=== PATIENT | male | born 1970 | race Hispanic/Latino ===

== ENCOUNTER 2020-04-24 10:59 | Inpatient (IN) | payer OTHER ==
[~2020-04-24] VITALS: Ht 165.1 cm; Wt 85.7 kg
[2020-04-24] VITALS (7 sets, daily range): BP systolic 133–140; BP diastolic 73–83
[2020-04-24] MEDS ORDERED: SODIUM CHLORIDE 0.9% 1000ML 1,000 ML IV STA (11:13)
[2020-04-24] MEDS ORDERED: LORAZEPAM INJ 2 MG/ML VIAL IV NR (11:15)
[2020-04-24] MEDS ORDERED: VANCOMYCIN 1GM/NS 250 ML 250 ML IV ONE (11:30)
[2020-04-24 11:40] LABS: BASOPHILS % 0.5 % (0.0-1.0); EOSINOPHILS # (AUTO) 0.2 (0.0-0.4); HEMATOCRIT 43.3 % (38.2-49.6); HEMOGLOBIN 14.5 g/dL (14.0-18.0); LYMPHOCYTES # (AUTO) 1.4 (1.0-3.2); LYMPHOCYTES % 17.9 % (18.0-39.1); MEAN CORPUSCULAR HEMOGLOBIN 29.7 pg (28-32); MEAN CORPUSCULAR HGB CONC 33.5 g/dL (31-35); MEAN CORPUSCULAR VOLUME 88.7 fL (81-99); MONOCYTES # (AUTO) 0.7 (0.2-0.8); MONOCYTES % 8.5 % (4.4-11.3); NEUTROPHILS # (AUTO) 5.4 (2.1-6.9); NEUTROPHILS % 70.7 % (38.7-80.0); PLATELET COUNT 225 x10e3/uL (140-360); RED BLOOD COUNT 4.88 x10e6/uL (4.3-5.7); RED CELL DISTRIBUTION WIDTH 12.7 % (11.7-14.4)
[2020-04-24] MEDS ORDERED: MORPHINE SULFATE 2 MG/ML SYR 1ML IV NR (11:45)
[2020-04-24] MEDS ORDERED: ONDANSETRON HCL INJ 2MG/ML 2ML 2 MG/ML VIAL IV NR (11:45)
[2020-04-24 11:52] LABS: INR 1.07; PROTHROMBIN TIME 14.4 seconds (11.9-14.5)
[2020-04-24 11:53] LABS: PARTIAL THROMBOPLASTIN TIME 20.2 seconds (23.8-35.5)
[2020-04-24 12:07] LABS: ALANINE AMINOTRANSFERASE 46 IU/L (0-55); ALBUMIN 4.4 g/dL (3.5-5.0); ALBUMIN/GLOBULIN RATIO 1.4 (0.8-2.0); ALKALINE PHOSPHATASE 71 IU/L (40-150); ANION GAP 28.6 mmol/L (8-16); BLOOD UREA NITROGEN 10 mg/dL (7-26); BUN/CREATININE RATIO 11 (6-25); CALCIUM 8.8 mg/dL (8.4-10.2); CARBON DIOXIDE 22 mmol/L (22-29); CHLORIDE 89 mmol/L (98-107); CREATININE, SERUM 0.92 mg/dL (0.72-1.25); EST GLOMERULAR FILTRATION RATE > 60 ML/MIN (60-); GLUCOSE 108 mg/dL (74-118); POTASSIUM 3.6 mmol/L (3.5-5.1); SODIUM 136 mmol/L (136-145)
[2020-04-24] MEDS ORDERED: SODIUM CHLORIDE 0.9% 50ML 50 ML ONE (12:18)
[2020-04-24] MEDS ORDERED: IOPAMIDOL 370 MG/ML 200 ML INFUS..BTL INJ ONE (12:19)
[2020-04-24] MEDS ORDERED: ONDANSETRON HCL INJ 2MG/ML 2ML 2 MG/ML VIAL IV PRN (13:15)
[2020-04-24] MEDS ORDERED: ACETAMINOPHEN 325 MG TAB PO PRN (13:15)
--- NOTE | 2020-04-24 13:16 | NUR ---
H&P cc: face rash HPI: 49yoM, PCP none, developed left cheek swelling and pain/redness that started yesterday. Started as itching; Similar event about 6 yrs ago. PMH HTN, Left facial cellulitis in 2013 PShx; cholecystectomy Allergies; see emr Fh/SH; marrie;d no cigs med.s see [facility] ROS; no f/c/s/n/V/D/[facility]/cp/sob/confusion/dizziness/vision changes/leg pain v/s; revd PE tired appearing anicteric; LEFT FACIAL AT [place] WITH ERYTHEMA/INDURATION/TENDERNESS/WARMTH; no skin breakdown/discharge [id number] mod bs soft nt nd no e/t skin dry n. affect labs/meds revd A/P: Cellulitis of face- IV abx; cultures Furuncle of face- Possible abscess; IV abx; f/u imaging; Obesity- screen for DM; check lipids BMI 31.5- as above Prop; scd DIpso: f/u labs;
--- NOTE | 2020-04-24 13:31 | Emergency Department Note ---
History of Present Illnes History of Present Illness Chief Complaint: Skin Rash or Abscess History of Present Illness This is a 49 year old male LAST NIGHT FELT ITCHING TO LEFT SIDE OF FACE. WOKE UP THIS MORNING WITH REDNESS, SWELLING, TENDER, INDURATED. 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 Any updates have been documented here. Past Medical History Recent Fever: No Clinical Suspicion of Infectio: No New/Unexplained Change in Ment: No Past Medical History: Hypertension, Anxiety, Hyperlipedemia Past Surgical History: Cholecysctectomy Social History Smoking Cessation: Never Smoker Counseling Performed: No Alcohol Use: None Any Illegal Drug Use: No TB Exposure/Symptoms: No Physically hurt or threatened: No Family History Family history of heart diseas: No Other Any Pre-Existing Lines (PICC,: No Review of Systems Review of Systems Constitutional: Reports no symptoms EENTM: Reports as per HPI Cardiovascular: Reports no symptoms Respiratory: Reports no symptoms Gastrointestinal: Reports no symptoms Genitourinary: Reports no symptoms Musculoskeletal: Reports no symptoms Integumentary: Reports no symptoms Neurological: Reports no symptoms Psychological: Reports no symptoms Endocrine: Reports no symptoms Hematological/Lymphatic: Reports no symptoms Physical Exam Related Data Allergies: Coded Allergies: No Known Allergies (Unverified , 04/24/20) Triage Vital Signs Vital Signs Date Time Temp Pulse Resp B/P (MAP) Pulse Ox O2 Delivery O2 Flow Rate FiO2 04/24/20 11:06 98.3 100 18 141/108 99 Room Air Vital signs reviewed: Yes Physical Exam CONSTITUTIONAL Constitutional: Present well-developed, Present well-nourished HENT HENT: Present normocephalic, Present atraumatic, Present other (LEFT FACIAL SWELLING/INDURATION, WITH TENDERNESS) HENT L/R: Present left ext ear normal, Present right ext ear normal EYES Eyes: Reports PERRL, Reports conjunctivae normal NECK Neck: Present ROM normal PULMONARY Pulmonary: Present effort normal, Present breath sounds normal CARDIOVASCULAR Cardiovascular: Present regular rhythm, Present heart sounds normal, Present capillary refill normal, Present normal rate GASTROINTESTINAL Abdominal: Present soft, Present nontender, Present bowel sounds normal GENITOURINARY Genitourinary: Present exam deferred SKIN Skin: Present warm, Present dry MUSCULOSKELETAL Musculoskeletal: Present ROM normal NEUROLOGICAL Neurological: Present alert, Present oriented x 3, Present no gross motor or sensory deficits PSYCHOLOGICAL Psychological: Present mood/affect normal, Present judgement normal Results Laboratory Result Diagram: 04/24/20 1124 04/24/20 1124 Laboratory Laboratory Tests Test 04/24/20 12:38 04/24/20 11:24 White Blood Count 7.64 x10e3/uL (4.8-10.8) Red Blood Count 4.88 x10e6/uL (4.3-5.7) Hemoglobin 14.5 g/dL (14.0-18.0) Hematocrit 43.3 % (38.2-49.6) Mean Corpuscular Volume 88.7 fL (81-99) Mean Corpuscular Hemoglobin 29.7 pg (28-32) Mean Corpuscular Hemoglobin Concent 33.5 g/dL (31-35) Red Cell Distribution Width 12.7 % (11.7-14.4) Platelet Count 225 x10e3/uL (140-360) Neutrophils (%) (Auto) 70.7 % (38.7-80.0) Lymphocytes (%) (Auto) 17.9 % (18.0-39.1) Monocytes (%) (Auto) 8.5 % (4.4-11.3) Eosinophils (%) (Auto) 2.0 % (0.0-6.0) Basophils (%) (Auto) 0.5 % (0.0-1.0) Neutrophils # (Auto) 5.4 (2.1-6.9) Lymphocytes # (Auto) 1.4 (1.0-3.2) Monocytes # (Auto) 0.7 (0.2-0.8) Eosinophils # (Auto) 0.2 (0.0-0.4) Basophils # (Auto) 0.0 (0.0-0.1) Absolute Immature Granulocyte (auto 0.03 x10e3/uL (0-0.1) Prothrombin Time 14.4 seconds (11.9-14.5) Prothromb Time International Ratio 1.07 Activated Partial Thromboplast Time 20.2 seconds (23.8-35.5) Sodium Level 136 mmol/L (136-145) Potassium Level 3.6 mmol/L (3.5-5.1) Chloride Level 89 mmol/L (98-107) Carbon Dioxide Level 22 mmol/L (22-29) Anion Gap 28.6 mmol/L (8-16) Blood Urea Nitrogen 10 mg/dL (7-26) Creatinine 0.92 mg/dL (0.72-1.25) Estimat Glomerular Filtration Rate > 60 ML/MIN (60-) BUN/Creatinine Ratio 11 (6-25) Glucose Level 108 mg/dL (74-118) Lactic Acid Level 1.6 mmol/L (0.5-2.0) Calcium Level 8.8 mg/dL (8.4-10.2) Total Bilirubin 0.5 mg/dL (0.2-1.2) Aspartate Amino Transf (AST/SGOT) 30 IU/L (5-34) Alanine Aminotransferase (ALT/SGPT) 46 IU/L (0-55) Alkaline Phosphatase 71 IU/L (40-150) Total Protein 7.5 g/dL (6.5-8.1) Albumin 4.4 g/dL (3.5-5.0) Globulin 3.1 g/dL (2.3-3.5) Albumin/Globulin Ratio 1.4 (0.8-2.0) Lab results reviewed: Yes Imaging Imaging results reviewed: Yes Assessment & Plan Medical Decision Making MDM FACIAL SWELLING - CBC, CHEM, CX'S, LACTIC, CT FACE - R/O CELLULITIS VS ABSCESS, IV ABX'S, ADMIT Reassessment Reassessment ADMIT TO DR MAZARIEGOS Assessment & Plan Final Impression: (1) Facial cellulitis Depart Disposition: ADMITTED Last Vital Signs Date Time Temp Pulse Resp B/P (MAP) Pulse Ox O2 Delivery O2 Flow Rate FiO2 04/24/20 11:06 98.3 100 18 141/108 99 Room Air Medications in the ED Sodium Chloride 1,000 ml @ 0 mls/hr Q0M STAT IV Last administered on 04/24/20at 11:48; Admin Dose 1,000 MLS/HR; Start 04/24/20 at 11:13; Stop 04/24/20 at 11:18; Status DC Lorazepam 1 mg ONCE IV Last administered on 04/24/20at 11:48; Admin Dose 1 MG; Start 04/24/20 at 11:15; Stop 04/24/20 at 12:00; Status DC Piperacillin Sod/ Tazobactam Sod 50 ml @ 50 mls/hr Q6H IV ; Start 04/24/20 at 12:00; Stop 05/01/20 at 11:59 Vancomycin HCl 250 ml @ 200 mls/hr NOW ONCE IV Last administered on 04/24/20at 11:48; Admin Dose 200 MLS/HR; Start 04/24/20 at 11:30; Stop 04/24/20 at 12:44; Status DC Morphine Sulfate 4 mg ONCE IV Last administered on 04/24/20at 11:48; Admin Dose 4 MG; Start 04/24/20 at 11:45; Stop 04/24/20 at 12:59; Status DC Ondansetron HCl 4 mg ONCE IV Last administered on 04/24/20at 11:48; Admin Dose 4 MG; Start 04/24/20 at 11:45; Stop 04/24/20 at 12:59; Status DC Sodium Chloride 50 ml @ ud STK-MED ONCE .ROUTE ; Start 04/24/20 at 12:18; Stop 04/24/20 at 12:11; Status DC Iopamidol 74,000 mg STK-MED ONCE INJ ; Start 04/24/20 at 12:19; Stop 04/24/20 at 12:12; Status DC Clindamycin Phosphate 50 ml @ 50 mls/hr Q8HR IV ; Start 04/24/20 at 14:00; Stop 05/01/20 at 13:59 Acetaminophen 650 mg Q6H PRN PO Mild Pain (1-3) or Fever>100.8; Start 04/24/20 at 13:15; Stop 05/24/20 at 13:14 Docusate Sodium 100 mg BID PRN PO constipation; Start 04/24/20 at 13:15; Stop 05/24/20 at 13:14 Ondansetron HCl 4 mg Q4H PRN IV NAUSEA AND VOMITING; Start 04/24/20 at 13:15; Stop 05/24/20 at 13:14 Zolpidem Tartrate 5 mg HS PRN PO INSOMNIA; Start 04/24/20 at 21:00; Stop 05/01/20 at 20:59 BA DURÁN MD Apr 24, 2020 13:31
--- OUTSIDE RECORDS SUMMARY | 2020-04-24 13:35 | XMS REPORT | Clinical Summary ---
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 Active lisinopril (PRINIVIL) 10 Take 1 tablet 90 tablet 0 mg tabletIndications: by mouth 7 Medication refill daily. Active albuterol (VENTOLIN Inhale 2 3 Month 0 HFA,PROVENTIL HFA,PROAIR Puffs by Supply 7 HFA) 90 mcg/actuation mouth 4 times inhalerIndications: daily as Medication refill needed for Wheezing. Active baclofen (LIORESAL) 10 mg Take 1 tablet 30 tablet 0 tabletIndications: Neck by mouth 3 7 pain times daily. Active PARoxetine (PAXIL) 30 mg Take 2 60 tablet 2 0 tabletIndications: MDD tablets by 7 (major depressive mouth every disorder), recurrent morning. episode, moderate Active clonazePAM (KLONOPIN) 1 Take 1 tablet 60 tablet 2 mg tabletIndications: MDD by mouth 2 7 (major depressive times daily disorder), recurrent as needed for episode, moderate, Panic Anxiety. disorder with agoraphobia Active QUEtiapine (SEROQUEL) 50 Take 1 tablet 30 tablet 0 mg tabletIndications: MDD by mouth at 7 (major depressive bedtime disorder), recurrent nightly. episode, moderate, Panic disorder with agoraphobia Active Problems Not on file Immunizations Name Administration Dates Next Due Influenza <Unspecified> 03/11/2016 Social History Date Tobacco Use Types Packs/Day Years Used Never Smoker Drinks/Week oz/Week Comments Alcohol Use 0 Standard drinks or equivalent 0.0 Not Asked Sex Assigned at Date Recorded Not on file Industry Job Start Date Occupation Not on file Not on file Not on file Travel End Travel History Travel Start No recent travel history available. Last Filed Vital Signs Not on file Plan of Treatment Health Maintenance Due Date Last Done Comments IMM Influenza Seasonal 02/25/2020 03/11/2016 Oct to July (>/= 19 yrs) Results Not on fileafter 04/24/2019 Insurance Type Payer Benefit Subscriber ID Effective Phone Address Plan / Dates Group [email or web address] xxxxxxxxx 2016-P [phone] [address] [address] [place] [address] [email or web address] xxxxxxxxx 2016-P [phone] [address] [address] [place] [address]
--- OUTSIDE RECORDS SUMMARY | 2020-04-24 13:36 | XMS REPORT | Continuity of Care Document ---
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 Encounter Type Admission Type [facility] Facility Care Department Encounter ID Source 2020-03-09 00:00:00 2020-03-09 00:00:00 Office Visit Tyrell Bauman [facility] Encounter/[id number] [facility] 2020-03-03 00:00:00 2020-03-03 00:00:00 Office Visit Tyrell Bauman [facility] Encounter/[id number] [facility] 2020-03-01 00:00:00 2020-03-01 00:00:00 Office Visit Lorie Cash I [facility] Encounter/[id number] [facility] 2020-03-01 00:00:00 2020-03-01 00:00:00 Office Visit Tyrell Bauman [facility] Encounter/[id number] [facility] 2020-02-10 00:00:00 2020-02-10 00:00:00 Office Visit Noah Cabrera [facility] Encounter/[id number] [facility] 2020-01-11 00:00:00 2020-01-11 00:00:00 Office Visit Tyrell Bauman [facility] Encounter/[id number] [facility] 2019-11-25 00:00:00 2019-11-25 00:00:00 Office Visit Noah Cabrera [facility] LC Encounter/[id number] [facility] 2019-11-10 00:00:00 2019-11-10 00:00:00 Office Visit Tyrell Bauman LC LC Encounter/[id number] [facility] 2019-10-21 00:00:00 2019-10-21 00:00:00 Office Visit Lizeth Hendrickson MedAdherJackie martin [facility] LC Encounter/[id number] [facility] 2019-10-15 00:00:00 2019-10-15 00:00:00 Office Visit Prakash Shelby [facility] LC Encounter/[id number] [facility] 2019-10-09 00:00:00 2019-10-09 00:00:00 Office Visit Igor Crowell MedAdherenceErin [facility] LC Encounter/[id number] [facility] 2019-10-09 00:00:00 2019-10-09 00:00:00 Office Visit Prakash Shelby [facility] LC Encounter/[id number] [facility] 2019-10-09 00:00:00 2019-10-09 00:00:00 Office Visit Igor Crowell Paulina [facility] LC Encounter/[id number] [facility] 2019-10-05 00:00:00 2019-10-05 00:00:00 Office Visit Prakash Shelby [facility] LC Encounter/[id number] [facility] 2019-10-05 00:00:00 2019-10-05 00:00:00 Office Visit Prakash Shelby [facility] LC Encounter/[id number] [facility] 2019-09-23 00:00:00 2019-09-23 00:00:00 Office Visit Igor Crowell MedAdherence,Parviz LC LC Encounter/[id number] [facility] 2019-09-18 00:00:2019-09-18 00:00:00 Office Visit HeronPrakash LC LC Encounter/[id number] [facility] 2019-09-18 00:00:00 2019-09-18 00:00:00 Office Visit HeronPrakash LC [facility] Encounter/[id number] [facility] 2019-09-18 00:00:00 2019-09-18 00:00:00 Office Visit Heron Prakash simon [facility] LCH Encounter/[id number] [facility] 2019-09-18 00:00:00 2019-09-18 00:00:00 Office Visit Heron Prakash simon [facility] LCH Encounter/[id number] [facility] 2019-09-18 00:00:00 2019-09-18 00:00:[address] [facility] LCH Encounter/[id number] [facility] 2019-09-18 00:00:00 2019-09-18 00:00:00 Office Visit Sissy Cohen Luis E LC LC Encounter/[id number] [facility] 2019-09-14 00:00:00 2019-09-14 00:00:00 Office Visit Tyrell Bauman LC [facility] Encounter/[id number] [facility] 2019-07-23 00:00:00 2019-07-23 00:00:00 Office Visit Rossy Hsu Marlin LC LC Encounter/[id number] Leg [facility] 2019-07-22 00:00:00 2019-07-22 00:00:00 Office Visit Rossy Hsu Jose E LC LC [id number] [facility]00 2019-07-21 00:00:00 Office Visit Tyrell Bauman LC [facility] Encounter/[id number] [facility] 2019-07-21 00:00:00 2019-07-21 00:00:00 Office Visit Rossy Hsu Jennifer LC [facility] Encounter/[id number] [facility] 2019-06-02 00:00:00 2019-06-02 00:00:00 Office Visit Yin Her Jacklyn LC L[facility] Encounter/[id number] [facility] 2019-05-25 00:00:00 2019-05-25 00:00:00 Office Visit Tyrell Bauman LC L[facility] Encounter/[id number] [facility] 2019-05-25 00:00:00 2019-05-25 00:00:00 Office Visit Rossy Hsu Nancy LC L[facility] Encounter/[id number] [facility] 2019-05-01 00:00:00 2019-05-01 00:00:00 Office Visit Rick Noah susy LC [facility] Encounter/[id number] [facility] 2019-03-19 00:00:00 2019-03-19 00:00:00 Office Visit Tyrell Bauman LC L[facility] Encounter/[id number] [facility] 2019-03-19 00:00:00 2019-03-19 00:00:00 Office Visit Rossy Hsu Nancy LC L[facility] Encounter/[id number] [facility] 2019-02-18 00:00:00 2019-02-18 00:00:00 Office Visit Tyrell Bauman LC L[facility] Encounter/[id number] [facility] 2019-02-18 00:00:00 2019-02-18 00:00:00 Office Visit Rossy Hsu Nancy LC L[facility] Encounter/[id number] [facility] 2019-01-07 00:00:00 2019-01-07 00:00:00 Office Visit Status, Fax LCH L[facility] Encounter/[id number] [facility] 2019-01-07 00:00:00 2019-01-07 00:00:00 Office Visit Status, Fax LCH L[facility] Encounter/[id number] [facility] 2019-01-07 00:00:00 2019-01-07 00:00:00 Office Visit Status, Fax LCH L[facility] Encounter/[id number] [facility] 2019-01-06 00:00:00 2019-01-06 00:00:00 Office Visit NiravLiban Tran LC L[facility] Encounter/[id number] [facility] 2019-01-06 00:00:00 2019-01-06 00:00:00 Office Visit Julián Manzo Dennys Vasquez, Adriana LC L[facility] Encounter/[id number] [facility] 2018-12-03 00:00:00 2018-12-03 00:00:00 Office Visit Liban Gastelum felicitas Tran LC L[facility] Encounter/[id number] [facility] 2018-12-02 00:00:00 2018-12-02 00:00:00 Office Visit Liban Gastelum LCH LCH Encounter/[id number] [facility] 2018-12-02 00:00:00 2018-12-02 00:00:00 Office Visit Liban Gastelum LC L[facility] Encounter/[id number] [facility] 2018-12-02 00:00:00 2018-12-02 00:00:00 Office Visit Liban Gastelum LC L[facility] Encounter/[id number] [facility] 2018-12-02 00:00:00 2018-12-02 00:00:00 Office Visit Liban Gastelum felicitas Tran LCH LCH Encounter/[id number] [facility] 2018-12-02 00:00:00 2018-12-02 00:00:00 Office Visit Julián Manzo Deborath LCH L[facility] Encounter/[id number] [facility] 2018-12-01 00:00:00 2018-12-01 00:00:00 Office Visit Tyrell Bauman LCH LCH Encounter/[id number] [facility] 2018-12-01 00:00:00 2018-12-01 00:00:00 Office Visit Tyrell Bauman LCH LCH Encounter/[id number] [facility] 2018-12-01 00:00:00 2018-12-01 00:00:00 Office Visit B Rossy aguirre Nancy LC LC [facility][id number] [facility] 2018-11-26 00:00:00 2018-11-26 00:00:00 Office Visit Tyrell Bauman LCH Encounter/[id number] [facility] 2018-11-06 00:00:00 2018-11-06 00:00:00 Office Visit Liban Gastelum LC LCH Encounter/[id number] [facility] 2018-09-30 00:00:00 2018-09-30 00:00:00 Office Visit Tyrell Bauman LC L[facility] Encounter/[id number] [facility] 2018-09-30 00:00:00 2018-09-30 00:00:00 Office Visit Rossy Hsu Nancy LC [facility] Encounter/[id number] [facility] 2018-07-29 00:00:00 2018-07-29 00:00:00 Office Visit Tyrell Bauman LC L[facility] Encounter/[id number] [facility] 2018-07-29 00:00:00 2018-07-29 00:00:00 Office Visit Rossy Hsu Nancy LC LC Encounter/[id number] [facility] 2018-06-16 19:00:00 2018-06-16 21:15:00 Departed Emergency Room 1 BA [facility] [id number] [facility] 2018-06-06 00:00:00 2018-06-06 00:00:00 Office Visit Liban Gastelum LC L[facility] Encounter/[id number] [facility] 2018-06-04 00:00:00 2018-06-04 00:00:00 Office Visit Tyrell Bauman LC L[facility] Encounter/[id number] [facility] 2018-06-04 00:00:00 2018-06-04 00:00:00 Office Visit Rossy Hsu Nancy LC L[facility] Encounter/[id number] [facility] 2018-05-22 00:00:00 2018-05-22 00:00:00 Office Visit Liban Gastelum LC L[facility] Encounter/[id number] [facility] 2018-05-22 00:00:00 2018-05-22 00:00:00 Office Visit Julián Manzo Deborath LC L[facility] Encounter/[id number] [facility] 2018-04-10 00:00:00 2018-04-10 00:00:00 Office Visit Amilcar Leone LC L[facility] Encounter/[id number] [facility] 2018-04-09 00:00:00 2018-04-09 00:00:00 Office Visit Liban Gastelum LC L[facility] Encounter/[id number] [facility] 2018-03-26 00:00:00 2018-03-26 00:00:00 Office Visit Tyrell Bauman LC LCH Encounter/[id number] [facility] 2018-03-26 00:00:00 2018-03-26 00:00:00 Office Visit Rossy Hsu Dalila LC LCH Encounter/[id number] [facility] 2018-03-21 00:00:00 2018-03-21 00:00:00 Office Visit Tyrell Bauman LCH LCH Encounter/[id number] [facility] 2018-03-10 00:00:00 2018-03-10 00:00:00 Office Visit Rossy Hsu Wendy LC LCH Encounter/[id number] [facility] 2018-01-07 00:00:00 2018-01-07 00:00:00 Office Visit Tyrell Bauman LC LCH Encounter/[id number] [facility] 2018-01-07 00:00:00 2018-01-07 00:00:00 Office Visit Rossy Hsu Grace LC LCH Encounter/[id number] [facility] 2017-11-07 00:00:00 2017-11-07 00:00:00 Office Visit Tyrell Bauman LCH LCH Encounter/[id number] [facility] 2017-11-07 00:00:00 2017-11-07 00:00:00 Office Visit Yisel sheldonchon Rossy JoseShani LCH LCH Encounter/[id number] [facility] 2017-10-30 00:00:00 2017-10-30 00:00:00 Office Visit Tyrell Bauman LCH LCH Encounter/[id number] [facility] 2017-10-30 00:00:00 2017-10-30 00:00:00 Office Visit Tyrell Bauman aeroshan LCH LCH Encounter/[id number] [facility] 2017-10-28 00:00:00 2017-10-28 00:00:00 Office Visit Tyrell Bauman LCH LCH Encounter/[id number] [facility] 2017-10-23 00:00:00 2017-10-23 00:00:00 Office Visit Tyrell Bauman LCH LCH Encounter/[id number] [facility] 2017-10-23 00:00:00 2017-10-23 00:00:00 Office Visit Tyrell Bauman LCH LCH Encounter/[id number] [facility] 2017-10-22 00:00:00 2017-10-22 00:00:00 Office Visit Tyrell Bauman LCH LCH Encounter/[id number] [facility] 2017-10-22 00:00:00 2017-10-22 00:00:00 Office Visit Tyrell Bauman LCH LCH Encounter/[id number] [facility] 2017-10-20 00:00:00 2017-10-20 00:00:00 Office Visit SandipchonTyrell LCH LCH Encounter/[id number] [facility] 2017-10-20 00:00:00 2017-10-20 00:00:00 Office Visit SandipchonTyrell LCH LCH Encounter/[id number] [facility] 2017-09-25 00:00:00 2017-09-25 00:00:00 Office Visit Tyrell Bauman LCH LCH Encounter/[id number] [facility] 2017-09-25 00:00:00 2017-09-25 00:00:00 Office Visit Tryell Bauman LCH LCH Encounter/[id number] [facility] 2017-09-23 00:00:00 2017-09-23 00:00:00 Office Visit MernaTyrell LCH LCH Encounter/[id number] [facility] 2017-09-23 00:00:00 2017-09-23 00:00:00 Office Visit MernaTyrell LCH LCH Encounter/[id number] [facility] 2017-09-10 00:00:00 2017-09-10 00:00:00 Office Visit Julián Manzo Crystal LCH LCH Encounter/[id number] [facility] 2017-08-27 00:00:00 2017-08-27 00:00:00 Office Visit MernaTyrell LCH LCH Encounter/[id number] [facility] 2017-08-26 00:00:00 2017-08-26 00:00:00 Office Visit MernaTyrell LCH LCH Encounter/[id number] [facility] 2017-08-24 00:00:00 2017-08-24 00:00:00 Office Visit MernaTyrell aeroshan LCH LCH Encounter/[id number] [facility] 2017-08-22 00:00:00 2017-08-22 00:00:00 Office Visit Lita Bolden Joseline LCH LCH Encounter/[id number] [facility] 2017-08-16 00:00:00 2017-08-16 00:00:00 Office Visit Tyrell Bauman joseroshan LCH LCH Encounter/[id number] [facility] 2017-08-16 00:00:00 2017-08-16 00:00:00 Office Visit Liban Gastelum LCH LCH Encounter/[id number] [facility] 2017-08-16 00:00:00 2017-08-16 00:00:00 Office Visit Liban Gastelum LC LCH Encounter/[id number] [facility] 2017-08-16 00:00:00 2017-08-16 00:00:00 Office Visit Julián Manzo Iris LC LCH Encounter/[id number] [facility] 2017-08-08 00:00:00 2017-08-08 00:00:00 Office Visit Julián Manzo DeboraLita Beasley LC LCH Encounter/[id number] [facility] 2017-08-07 00:00:00 2017-08-07 00:00:00 Office Visit Liban Gastelum LC LCH Encounter/[id number] [facility] 2017-08-07 00:00:00 2017-08-07 00:00:00 Office Visit Julián Manzo Ana LC LCH Encounter/[id number] [facility] 2017-08-05 00:00:00 2017-08-05 00:00:00 Office Visit Tyrell Bauman LCH LCH Encounter/[id number] [facility] 2017-08-05 00:00:00 2017-08-05 00:00:00 Office Visit Tyrell Bauman LCH LCH Encounter/[id number] [facility] 2017-07-31 00:00:00 2017-07-31 00:00:00 Office Visit Tyrell Buaman LCH LCH Encounter/[id number] [facility] 2017-07-31 00:00:00 2017-07-31 00:00:00 Office Visit Tyrell Bauman LCH LCH Encounter/[id number] [facility] 2017-07-31 00:00:00 2017-07-31 00:00:00 Office Visit Rossy Hsu Grace LCH LCH Encounter/[id number] [facility] 2017-07-30 00:00:00 2017-07-30 00:00:00 Office Visit Tyrell Bauman aeroshan LCH LC Encounter/[id number] [facility] 2017-07-30 00:00:00 2017-07-30 00:00:00 Office Visit Tyrell Bauman [facility] LC Encounter/[id number] [facility] 2017-07-27 00:00:00 2017-07-27 00:00:00 Office Visit Tyrell Bauman aeroshan [facility] LC Encounter/[id number] [facility] 2017-07-01 16:04:00 2017-07-01 18:24:00 Departed Emergency Room [facility] [id number] [facility] 2017-06-07 00:00:00 2017-06-07 00:00:00 Office Visit Merna Tyrell asencio [facility] LC Encounter/[id number] [facility] 2017-06-05 00:00:00 2017-06-05 00:00:00 Office Visit Merna Tyrell asencio [facility] LC Encounter/[id number] [facility] 2017-06-05 00:00:00 2017-06-05 00:00:00 Office Visit B Rossy aguirre Grace [facility] Encounter/[id number] [facility] 2017-05-29 00:00:00 2017-05-29 00:00:00 Office Visit Fawad Quinn [facility] LC Encounter/[id number] [facility] 2017-05-29 00:00:00 2017-05-29 00:00:00 Office Visit B Rossy aguirre Charukesi [facility] LC Encounter/[id number] [facility] 2017-05-13 00:00:00 2017-05-13 00:00:00 Office Visit Rossy Hsu Grace Mejia, Guillermo [facility] LC Encounter/[id number] [facility] 2017-04-24 00:00:00 2017-04-24 00:00:00 Office Visit Tyrell Bauman [facility] LC Encounter/[id number] [facility] 2017-04-24 00:00:00 2017-04-24 00:00:00 Office Visit Moraima Aleman LC [facility] Encounter/[id number] [facility] 2017-04-24 00:00:00 2017-04-24 00:00:00 Office Visit Rossy Hsu Grace LC LCH Encounter/[id number] [facility] 2017-04-10 00:00:00 2017-04-10 00:00:00 Office Visit Michelle Edgar Maritza [facility] LCH Encounter/[id number] [facility] 2017-04-02 00:00:00 2017-04-02 00:00:[address] [facility] LCH Encounter/[id number] [facility] 2017-04-02 00:00:00 2017-04-02 00:00:00 Office Visit Maegan Holland [facility] LCH Encounter/[id number] [facility] 2017-03-13 00:00:00 2017-03-13 00:00:00 Office Visit Maegan Holland [facility] LCH Encounter/[id number] [facility] 2017-03-13 00:00:00 2017-03-13 00:00:00 Office Visit Maegan Hollande [facility] LCH Encounter/[id number] [facility] 2017-03-11 00:00:00 2017-03-11 00:00:00 Office Visit Michelle Edgar Thida LC LCH Encounter/[id number] [facility] 2017-02-28 00:00:00 2017-02-28 00:00:00 Office Visit Maegan Holland [facility] LCH Encounter/[id number] [facility] 2017-02-19 00:00:00 2017-02-19 00:00:00 Office Visit Michelle Edgar Amanda Gomez, Adam LC LCH Encounter/[id number] [facility] 2017-02-18 00:00:2017-02-18 00:00:00 Office Visit Michelle Edgar Virginia Balboa, Maritza Mejia, Guillermo LC LC Encounter/[id number] [facility] 2017-02-14 00:00:00 2017-02-14 00:00:00 Office Visit Liban Gastelum LC LC Encounter/[id number] [facility] 2017-02-14 00:00:00 2017-02-14 00:00:00 Office Visit Julián Manzo Dulce [facility] LC Encounter/[id number] [facility] 2017-02-12 00:00:00 2017-02-12 00:00:00 Office Visit Liban Gastelum LC LC Encounter/[id number] [facility] 2017-02-12 00:00:00 2017-02-12 00:00:00 Office Visit Julián Manzo Dulce LC LC Encounter/[id number] [facility] 2017-02-08 00:00:00 2017-02-08 00:00:00 Office Visit Ernst Heard LC LC Encounter/[id number] [facility] 2017-02-08 00:00:00 2017-02-08 00:00:00 Office Visit Ernst Heard LC L[facility] Encounter/[id number] [facility] 2017-01-24 00:00:00 2017-01-24 00:00:00 Office Visit Cyn Busby Grace Marie, Nathalie Velasquez, Juan Horton LC LC Encounter/[id number] [facility] 2017-01-16 00:00:00 2017-01-16 00:00:00 Office Visit Ernst Heard LC [facility] Encounter/[id number] [facility] 2017-01-16 00:00:00 2017-01-16 00:00:00 Office Visit Ernst Heard LC L[facility] Encounter/[id number] [facility] 2017-01-09 00:00:00 2017-01-09 00:00:00 Office Visit Reggie Dao LC LC Encounter/[id number] [facility] 2017-01-08 00:00:00 2017-01-08 00:00:00 Office Visit Cyn Busby Meagan Mejia, Guillermo [facility] LC Encounter/[id number] [facility] 2017-01-07 00:00:00 2017-01-07 00:00:00 Office Visit Ernst Heard [facility] LC Encounter/[id number] [facility] 2017-01-06 00:00:00 2017-01-06 00:00:00 Office Visit Ernst Heard [facility] LC Encounter/[id number] [facility] 2016-12-08 00:00:00 2016-12-08 00:00:00 Office [address] Maegan Holland [facility] Encounter/[id number] [facility] 2016-12-08 00:00:00 2016-12-08 00:00:00 Office Visit Maegan Holland [facility] Encounter/[id number] [facility] 2016-12-08 00:00:00 2016-12-08 00:00:00 Office Visit Michelle Edgar Velia [facility] Encounter/[id number] [facility] 2016-12-06 00:00:00 2016-12-06 00:00:00 Office Visit Deric Dennis [facility] Encounter/[id number] [facility] 2016-12-06 00:00:00 2016-12-06 00:00:00 Office Visit Deric Cote Erron [facility] Encounter/[id number] [facility] 2016-11-22 00:00:00 2016-11-22 00:00:00 Office Visit Michelle Edgar Thida [facility] Encounter/[id number] [facility] 2016-11-10 00:00:00 2016-11-10 00:00:00 Office Visit Michelle Edgar Isaias [facility] Encounter/[id number] [facility] 2016-11-05 00:00:00 2016-11-05 00:00:00 Office Visit Ailyn Fisher [facility] Encounter/[id number] [facility] 2016-10-31 00:00:00 2016-10-31 00:00:00 Office Visit Ailyn Fisher [facility] Encounter/[id number] [facility] 2016-10-31 00:00:00 2016-10-31 00:00:00 Office Visit Ailyn Fisher [facility] Encounter/[id number] [facility] 2016-10-31 00:00:00 2016-10-31 00:00:00 Office Visit Ailyn Fisher [facility] Encounter/[id number] [facility] 2016-10-31 00:00:00 2016-10-31 00:00:00 Office Visit Hitesh Castañeda Channin [facility] Encounter/[id number] [facility] 2016-10-19 00:00:00 2016-10-19 00:00:00 Office Visit Maday Bocanegra [facility] Encounter/[id number] [facility] 2016-09-12 00:00:00 2016-09-12 00:00:00 Office Visit ZafarMartha [facility] Encounter/[id number] [facility] Results Test Description Test Time Test Comments Results Result Comments Source LDL cholesterol, serum 2020-03-01 08:51:00 Test Item LDL cholesterol, serum (test code = 2089-1) 166 mg/dL 0-99 H [facility] low density hafujexfagjb9921-13-59 08:51:00* Test Item Value Reference Range Interpretation Comments very low density lipoproteins (test code = 2091-7) 45 mg/dL 5-4 0 H [facility] cholesterol, [id number] 08:51:00* Test Item Value Reference Range Interpretation Comments HDL cholesterol, serum (test code = 2085-9) 46 mg/dL >39 [facility], serum, jzolmda8550-51-01 08:51:00* Test Item Value Reference Range Interpretation Comments triglyceride, serum, fasting (test code = 2571-8) 240 mg/dL 0-14 9 H [facility]villecholesterol, [id number] 08:51:00* Test Item Value Reference Range Interpretation Comments cholesterol, serum (test code = 2093-3) 257 mg/dL 100-199 H [facility] aminotransferase (SGPT), [id number] 08:51:00 * Test Item Value Reference Range Interpretation Comments alanine aminotransferase (SGPT), serum (test code = 1742-6) 40 1/L 0-44 [facility]villeaspartate aminotransferase (SGOT), migfq5621-35-36 08:51:00* Test Item Value Reference Range Interpretation Comments aspartate aminotransferase (SGOT), serum (test code = 1920-8) 27 1/ L 0-40 [facility]villealk[facility] phosphatase, [id number] 08:51:00* Test Item Value Reference Range Interpretation Comments alkaline phosphatase, serum (test code = 1783-0) 75 1/L 39-11 7 [facility]bilirubin, serum, lnser6635-07-43 08:51:00* Test Item Value Reference Range Interpretation Comments bilirubin, serum, total (test code = 1975-2) 0.3 mg/dL 0.0-1.2 [facility] Healthalbumin/globulin ratio, [id number] 08:51:00* Test Item Value Reference Range Interpretation Comments albumin/globulin ratio, serum (test code = 1759-0) 1.7 1.2 -2.2 [facility] Healthglobulin, zmffn4568-98-47 08:51:00* Test Item Value Reference Range Interpretation Comments globulin, serum (test code = 2336-6) 2.7 1.5-4.5 [facility] Healthalbumin, [id number] 08:51:00* Test Item Value Reference Range Interpretation Comments albumin, serum (test code = 1751-7) 4.6 g/dL 4.0-5.0 [facility] Healthprotein, total, [id number] 08:51:00* Test Item Value Reference Range Interpretation Comments protein, total, serum (test code = 2885-2) 7.3 g/dL 6.0-8.5 [facility] Healthcalcium, [id number] 08:51:00* Test Item Value Reference Range Interpretation Comments calcium, serum (test code = 2000-8) 9.8 mg/dL 8.7-10.2 [facility] dioxide, venous ztxxe7098-24-98 08:51:00* Test Item Value Reference Range Interpretation Comments carbon dioxide, venous blood (test code = 2027-1) 24 mmol/L 20-2 9 [facility] Healthchloride, uqiyo2740-03-59 08:51:00* Test Item Value Reference Range Interpretation Comments chloride, serum (test code = 2075-0) 97 mmol/L 96-106 [facility] Healthpotassium, amybb0120-83-25 08:51:00* Test Item Value Reference Range Interpretation Comments potassium, serum (test code = 2823-3) 4.8 mmol/L 3.5-5.2 [facility]villesodium, [id number] 08:51:00* Test Item Value Reference Range Interpretation Comments sodium, serum (test code = 2951-2) 138 mmol/L 134-144 [facility]a nitrogen/creatinine ratio, qoiur0027-28-28 08:51:00 * Test Item Value Reference Range Interpretation Comments urea nitrogen/creatinine ratio, serum (test code = 3097-3) 11 9-20 [facility] HealtheGFR if Henvlfkl3959-59-86 08:51:00* Test Item Value Reference Range Interpretation Comments eGFR if (test code = 60386-2) 100 mL/min/((173/100 ).m2) >59 [facility]villeEstimated Glomerular Filtration Rate (calc)2020-03-01 08:51:00* Test Item Value Reference Range Interpretation Comments Estimated Glomerular Filtration Rate (calc) (test code = 62892-6) 86 mL/min/((173/100).m2) >59 [facility]villecreatinine, zhhbc9982-76-35 08:51:00* Test Item Value Reference Range Interpretation Comments creatinine, serum (test code = 2160-0) 1.03 mg/dL 0.76-1.27 [facility] nitrogen, [id number] 08:51:00* Test Item Value Reference Range Interpretation Comments urea nitrogen, blood (test code = 3094-0) 11 mg/dL 6-24 [facility] glucose, guyeyk6047-32-68 08:51:00* Test Item Value Reference Range Interpretation Comments blood glucose, random (test code = 2339-0) 107 mg/dL 65-99 H [facility]villeimmature granulocytes, percentage of total cells, blood 2020-03-01 08:51:00* Test Item Value Reference Range Interpretation Comments immature granulocytes, percentage of total cells, bloo d (test code = 97156-4) 0 % [facility]villebasophil count, emnoeljy8972-54-39 08:51:00* Test Item Value Reference Range Interpretation Comments basophil count, absolute (test code = 14755-7) 0.1 x10E3/uL 0.0-0.2 [facility]villeEosinophil Absolute Fysan1769-38-19 08:51:00* Test Item Value Reference Range Interpretation Comments Eosinophil Absolute Count (test code = 33785-8) 0.5 X10E3/UL 0.0-0. 4 H [facility]villemonocyte count, blood, hgztubxft3606-86-52 08:51:00* Test Item Value Reference Range Interpretation Comments monocyte count, blood, automated (test code = 742-7) 0.6 X10E3/UL 0 .1-0.9 [facility]villelymphocyte count, blood, qbyexutvh5528-52-75 08:51:00* Test Item Value Reference Range Interpretation Comments lymphocyte count, blood, automated (test code = 731-0) 2.2 X10E3/UL 0.7-3.1 [facility]villeAbsolute Avqzkjcpolz1657-42-47 08:51:00* Test Item Value Reference Range Interpretation Comments Absolute Neutrophils (test code = 69910-8) 2.7 X10E3/UL 1.4-7.0 [facility]basophils as percent of blood nuoygufatz4766-89-47 08:51:00* Test Item Value Reference Range Interpretation Comments basophils as percent of blood leukocytes (test code = 707-0) 1 % [facility]villeeosinophils as percent of blood cxiuidluie6873-17-98 08:51:00* Test Item Value Reference Range Interpretation Comments eosinophils as percent of blood leukocytes (test code = 713-8) 9 % [facility]villemonocytes as percent of blood xtietfrfdx3589-82-35 08:51:00* Test Item Value Reference Range Interpretation Comments monocytes as percent of blood leukocytes (test code = 5905-5) 9 % [facility]villelymphocytes as percent of blood sneocxgpdl7282-26-26 08:51:00* Test Item Value Reference Range Interpretation Comments lymphocytes as percent of blood leukocytes (test code = 736-9) 36 % [facility]eneutrophils as percent of blood gbcdfuvqkv8976-71-97 08:51:00* Test Item Value Reference Range Interpretation Comments neutrophils as percent of blood leukocytes (test code = 770-8) 45 % [facility]villeplatelet pczat6873-66-35 08:51:00* Test Item Value Reference Range Interpretation Comments platelet count (test code = 777-3) 279 X10E3/UL 150-450 [facility]red blood cell distribution njgfx9060-03-21 08:51:00* Test Item Value Reference Range Interpretation Comments red blood cell distribution width (test code = 788-0) 11.8 % 11.6-15.4 [facility] corpuscular hemoglobin concentration, [id number] 08:51:00* Test Item Value Reference Range Interpretation Comments mean corpuscular hemoglobin concentration, RBC (test code = 786-4) 33.6 G/DL 31.5-35.7 [facility] corpuscular hemoglobin, [id number] 08:51:00* Test Item Value Reference Range Interpretation Comments mean corpuscular hemoglobin, RBC (test code = 785-6) 30.2 pg 2 6.6-33.0 [facility] corpuscular volume, [id number] 08:51:00* Test Item Value Reference Range Interpretation Comments mean corpuscular volume, RBC (test code = 787-2) 90 fL 79-97 [facility]hematocrit, jqyff5006-56-10 08:51:00* Test Item Value Reference Range Interpretation Comments hematocrit, blood (test code = 4544-3) 44.7 % 37.5-51.0 [facility]villehemoglobin, udzma7251-84-47 08:51:00* Test Item Value Reference Range Interpretation Comments hemoglobin, blood (test code = 718-7) 15.0 g/dL 13.0-17.7 [facility]villeerythrocyte (RBC) ohxyh9733-04-09 08:51:00* Test Item Value Reference Range Interpretation Comments erythrocyte (RBC) count (test code = 789-8) 4.97 X10E6/UL 4.14-5.80 [facility]villeleukocyte count, bynyb2047-08-76 08:51:00* Test Item Value Reference Range Interpretation Comments leukocyte count, blood (test code = 6690-2) 6.0 X10E3/UL 3.4-10.8 [facility]villeurinalysis, microscopic qtadxyudzos8129-15-62 11:00:00* Test Item Value Reference Range Interpretation Comments urinalysis, microscopic examination (test code = 20559-1) MICNIP [facility]villenitrate, uaxsh2794-14-59 11:00:00* Test Item Value Reference Range Interpretation Comments nitrate, urine (test code = 92863-5) Negative Negative [facility]villeurobilinogen, urine, semiquantitative (dipstick) 2018-12-02 11:00:00* Test Item Value Reference Range Interpretation Comments urobilinogen, urine, semiquantitative (dipstick) (test code = 5818-0) 0.2 0.2-1.0 [facility]villebilirubin, etnrd2654-73-83 11:00:00* Test Item Value Reference Range Interpretation Comments bilirubin, urine (test code = 5770-3) Negative Negative [facility]villeketones, urine, by test ilkfh8587-79-09 11:00:00* Test Item Value Reference Range Interpretation Comments ketones, urine, by test strip (test code = 5797-6) Negative Neg ative [facility] Pinevilleglucose, urine, mkvzcohnkpsgdwyd7989-81-63 11:00:00* Test Item Value Reference Range Interpretation Comments glucose, urine, semiquantitative (test code = 5792-7) Negative Negative [facility]villeprotein, urine, semiquantitative (dipstick)2018-12-02 11:00:00* Test Item Value Reference Range Interpretation Comments protein, urine, semiquantitative (dipstick) (test code = 175 3-3) Negative Negative/Trace [facility]villeleukocyte esterase, urine, by fiwkznrx2312-03-67 11:00:00 * Test Item Value Reference Range Interpretation Comments leukocyte esterase, urine, by dipstick (test code = 5799-2) Negativ e Negative [facility]villeappearance, zhxzm4977-48-03 11:00:00* Test Item Value Reference Range Interpretation Comments appearance, urine (test code = 5767-9) Clear Clear [facility]villeurine cbhiu8176-92-53 11:00:00* Test Item Value Reference Range Interpretation Comments urine color (test code = 5778-6) Yellow Yellow [facility]villepH, urine, vbobccmpiyoxsnsi5608-35-69 11:00:00* Test Item Value Reference Range Interpretation Comments pH, urine, semiquantitative (test code = 5803-2) 5.5 5.0-7 .5 [facility]villespecific gravity, body nllas2385-66-32 11:00:00* Test Item Value Reference Range Interpretation Comments specific gravity, body fluid (test code = 2964-5) 1.020 1.00 5-1.030 [facility]villeLDL cholesterol, wxorj8672-75-52 10:57:00* Test Item Value Reference Range Interpretation Comments LDL cholesterol, serum (test code = 2089-1) 153 mg/dL 0-99 H [facility]villevery low density zeyufxmmfeuh9439-98-08 10:57:00* Test Item Value Reference Range Interpretation Comments very low density lipoproteins (test code = 2091-7) 34 mg/dL 5-4 0 [facility]villeHDL cholesterol, dvnrr6257-39-14 10:57:00* Test Item Value Reference Range Interpretation Comments HDL cholesterol, serum (test code = 2085-9) 45 mg/dL >39 [facility]illetriglyceride, serum, opvmisu7342-49-25 10:57:00* Test Item Value Reference Range Interpretation Comments triglyceride, serum, fasting (test code = 2571-8) 171 mg/dL 0-14 9 H [facility]villecholesterol, hhkpq8853-11-45 10:57:00* Test Item Value Reference Range Interpretation Comments cholesterol, serum (test code = 2093-3) 232 mg/dL 100-199 H [facility]villealanine aminotransferase (SGPT), jiykw6198-16-90 10:57:00 * Test Item Value Reference Range Interpretation Comments alanine aminotransferase (SGPT), serum (test code = 1742-6) 27 1/L 0-44 [facility]villeaspartate aminotransferase (SGOT), fxaea5022-83-62 10:57:00* Test Item Value Reference Range Interpretation Comments aspartate aminotransferase (SGOT), serum (test code = 1920-8) 18 1/ L 0-40 [facility]villealkaline phosphatase, hgdss7903-77-87 10:57:00* Test Item Value Reference Range Interpretation Comments alkaline phosphatase, serum (test code = 1783-0) 63 1/L 39-11 7 [facility] Healthbilirubin, serum, xpqew2305-77-18 10:57:00* Test Item Value Reference Range Interpretation Comments bilirubin, serum, total (test code = 1975-2) 0.3 mg/dL 0.0-1.2 [facility] Healthalbumin/globulin ratio, mwwmg3351-15-94 10:57:00* Test Item Value Reference Range Interpretation Comments albumin/globulin ratio, serum (test code = 1759-0) 1.7 1.2 -2.2 [facility] Healthglobulin, ehkha6538-48-38 10:57:00* Test Item Value Reference Range Interpretation Comments globulin, serum (test code = 2336-6) 2.6 1.5-4.5 [facility] Healthalbumin, nddll9006-89-33 10:57:00* Test Item Value Reference Range Interpretation Comments albumin, serum (test code = 1751-7) 4.4 g/dL 3.5-5.5 [facility] Healthprotein, total, zmdez3560-67-08 10:57:00* Test Item Value Reference Range Interpretation Comments protein, total, serum (test code = 2885-2) 7.0 g/dL 6.0-8.5 [facility] Healthcalcium, bhbvs3590-85-50 10:57:00* Test Item Value Reference Range Interpretation Comments calcium, serum (test code = 2000-8) 9.6 mg/dL 8.7-10.2 [facility] dioxide, venous vqeel4124-00-59 10:57:00* Test Item Value Reference Range Interpretation Comments carbon dioxide, venous blood (test code = 2027-1) 24 mmol/L 20-2 9 [facility] Healthchloride, wejts8628-03-25 10:57:00* Test Item Value Reference Range Interpretation Comments chloride, serum (test code = 2075-0) 101 mmol/L 96-106 [facility] Healthpotassium, dyfbo4407-37-09 10:57:00* Test Item Value Reference Range Interpretation Comments potassium, serum (test code = 2823-3) 4.4 mmol/L 3.5-5.2 [facility] Healthsodium, wdqxp1385-98-96 10:57:00* Test Item Value Reference Range Interpretation Comments sodium, serum (test code = 2951-2) 139 mmol/L 134-144 [facility]ville[facility]a nitrogen/creatinine ratio, pbloi1383-86-13 10:57:00 * Test Item Value Reference Range Interpretation Comments urea nitrogen/creatinine ratio, serum (test code = 3097-3) 8 9-20 L [facility] HealtheGFR if Qliroelu2193-79-13 10:57:00* Test Item Value Reference Range Interpretation Comments eGFR if (test code = 38932-6) 104 mL/min/((173/100 ).m2) >59 [facility]villeEstimated Glomerular Filtration Rate (calc)2018-11-26 10:57:00* Test Item Value Reference Range Interpretation Comments Estimated Glomerular Filtration Rate (calc) (test code = 15623-7) 90 mL/min/((173/100).m2) >59 [facility]villecreatinine, ikklo1634-65-28 10:57:00* Test Item Value Reference Range Interpretation Comments creatinine, serum (test code = 2160-0) 1.00 mg/dL 0.76-1.27 [facility]ville[facility] nitrogen, elkoc4768-36-33 10:57:00* Test Item Value Reference Range Interpretation Comments urea nitrogen, blood (test code = 3094-0) 8 mg/dL 6-24 [facility] glucose, wlgvvm9784-04-03 10:57:00* Test Item Value Reference Range Interpretation Comments blood glucose, random (test code = 2339-0) 97 mg/dL 65-99 [facility]villeimmature granulocytes, percentage of total cells, blood 2018-11-26 10:57:00* Test Item Value Reference Range Interpretation Comments immature granulocytes, percentage of total cells, bloo d (test code = 06647-5) 0 % [facility] Healthbasophil count, qtylcbch5964-89-35 10:57:00* Test Item Value Reference Range Interpretation Comments basophil count, absolute (test code = 36016-1) 0.0 x10E3/uL 0.0-0.2 [facility] HealthEosinophil Absolute Qbxrb9229-73-52 10:57:00* Test Item Value Reference Range Interpretation Comments Eosinophil Absolute Count (test code = 23021-6) 0.4 X10E3/UL 0.0-0. 4 [facility] Healthmonocyte count, blood, ofpqeltcp2085-25-94 10:57:00* Test Item Value Reference Range Interpretation Comments monocyte count, blood, automated (test code = 742-7) 0.5 X10E3/UL 0 .1-0.9 [facility]villelymphocyte count, blood, fbsqpzlvr5027-05-55 10:57:00* Test Item Value Reference Range Interpretation Comments lymphocyte count, blood, automated (test code = 731-0) 2.1 X10E3/UL 0.7-3.1 [facility] HealthAbsolute Wkcwhyjshfh9365-05-59 10:57:00* Test Item Value Reference Range Interpretation Comments Absolute Neutrophils (test code = 92601-9) 2.3 X10E3/UL 1.4-7.0 [facility]villebasophils as percent of blood fmnqnxxcwq6015-96-92 10:57:00* Test Item Value Reference Range Interpretation Comments basophils as percent of blood leukocytes (test code = 707-0) 1 % [facility] Healtheosinophils as percent of blood bexydukoxl3190-83-39 10:57:00* Test Item Value Reference Range Interpretation Comments eosinophils as percent of blood leukocytes (test code = 713-8) 8 % [facility] Healthmonocytes as percent of blood vwcboovkpl6735-37-29 10:57:00* Test Item Value Reference Range Interpretation Comments monocytes as percent of blood leukocytes (test code = 5905-5) 9 % [facility] Healthlymphocytes as percent of blood cchbcukcnv8806-13-42 10:57:00* Test Item Value Reference Range Interpretation Comments lymphocytes as percent of blood leukocytes (test code = 736-9) 40 % [facility]villeneutrophils as percent of blood qdzpxtnzqu0706-56-46 10:57:00* Test Item Value Reference Range Interpretation Comments neutrophils as percent of blood leukocytes (test code = 770-8) 42 % [facility]villeplatelet yobfh2379-31-75 10:57:00* Test Item Value Reference Range Interpretation Comments platelet count (test code = 777-3) 284 X10E3/UL 150-450 [facility]villered blood cell distribution bhyri9720-56-66 10:57:00* Test Item Value Reference Range Interpretation Comments red blood cell distribution width (test code = 788-0) 13.5 % 12.3-15.4 [facility] corpuscular hemoglobin concentration, [id number] 10:57:00* Test Item Value Reference Range Interpretation Comments mean corpuscular hemoglobin concentration, RBC (test code = 786-4) 32.6 G/DL 31.5-35.7 [facility] corpuscular hemoglobin, AQG4664-61-75 10:57:00* Test Item Value Reference Range Interpretation Comments mean corpuscular hemoglobin, RBC (test code = 785-6) 30.0 pg 2 6.6-33.0 [facility] corpuscular volume, [id number] 10:57:00* Test Item Value Reference Range Interpretation Comments mean corpuscular volume, RBC (test code = 787-2) 92 fL 79-97 [facility]villehematocrit, isjkx9639-95-12 10:57:00* Test Item Value Reference Range Interpretation Comments hematocrit, blood (test code = 4544-3) 43.8 % 37.5-51.0 [facility]villehemoglobin, duzqu3858-92-75 10:57:00* Test Item Value Reference Range Interpretation Comments hemoglobin, blood (test code = 718-7) 14.3 g/dL 13.0-17.7 [facility]villeerythrocyte (RBC) dsypp2065-22-44 10:57:00* Test Item Value Reference Range Interpretation Comments erythrocyte (RBC) count (test code = 789-8) 4.77 X10E6/UL 4.14-5.80 [facility]villeleukocyte count, cghao5301-56-51 10:57:00* Test Item Value Reference Range Interpretation Comments leukocyte count, blood (test code = 6690-2) 5.3 X10E3/UL 3.4-10.8 [facility]villeHAND [facility] VIEWS [id number] 20:07:00 [place] [address] Patient Name: BELTRAN RIVERA MR #: [id number] : 0 1970 Age/Sex: 47/M Req #: [id number] Adm Physician: Ordered by: ROSSY DUNHAM MD Report #: [id number] Location: ER Room/Bed: Procedure: [id number] DX/HAND 3+ VIEWS LEFT Exam Date: 06/16/18 Exam Time: 1939 REPORT STATUS: Sig maxine HAND 3+ VIEWS LEFT HISTORY: Drill through the left index finger.. COMPARISON: None available. FINDINGS: Bones: No acute displa abdifatah fracture. Osseous alignment is within normal limits. Joints: The joint spaces are well-maintained. Soft tissues: Bandage overlying the ind ex finger. No radiopaque foreign bodies. IMPRESSION: No acute bony abno rmality. Signed by: DR. Abhinav Stevens MD on 06/16/2018 8:08 PM Dicta yuliana By: ABHINAV STEVENS MD 07 Transcribed By: ALFOZNO on 06/16/182007 COPY TO: TYRELL DUNHAM MD hemoglobin A1C, blood, as % of total tjrperzlwi7604-54-38 10:51:00* Test Item Value Reference Range Interpretation Comments hemoglobin A1C, blood, as % of total hemoglobin (test code = 4548-4) 5.8 % 4.8-5.6 H [facility]villeLDL cholesterol, wrdly2606-83-43 10:51:00* Test Item Value Reference Range Interpretation Comments LDL cholesterol, serum (test code = 2089-1) 155 mg/dL 0-99 H [facility]villevery low density otapkcjavqmq4033-65-32 10:51:00* Test Item Value Reference Range Interpretation Comments very low density lipoproteins (test code = 2091-7) 39 mg/dL 5-4 0 [facility]villeHDL cholesterol, kdtji2985-25-54 10:51:00* Test Item Value Reference Range Interpretation Comments HDL cholesterol, serum (test code = 2085-9) 44 mg/dL >39 [facility]illetriglyceride, serum, worlzzf7452-63-15 10:51:00* Test Item Value Reference Range Interpretation Comments triglyceride, serum, fasting (test code = 2571-8) 196 mg/dL 0-14 9 H [facility]villecholesterol, owwwe8564-19-60 10:51:00* Test Item Value Reference Range Interpretation Comments cholesterol, serum (test code = 2093-3) 238 mg/dL 100-199 H [facility]villealanine aminotransferase (SGPT), wrsot7083-72-32 10:51:00 * Test Item Value Reference Range Interpretation Comments alanine aminotransferase (SGPT), serum (test code = 1742-6) 36 1/L 0-44 [facility]ate [facility] (SGOT), [id number] 10:51:00* Test Item Value Reference Range Interpretation Comments aspartate aminotransferase (SGOT), serum (test code = 1920-8) 25 1/ L 0-40 [facility]alk[facility] phosphatase, [id number] 10:51:00* Test Item Value Reference Range Interpretation Comments alkaline phosphatase, serum (test code = 1783-0) 70 1/L 39-11 7 [facility]bilirubin, serum, [id number] 10:51:00* Test Item Value Reference Range Interpretation Comments bilirubin, serum, total (test code = 1975-2) 0.2 mg/dL 0.0-1.2 [facility]in/globulin ratio, [id number] 10:51:00* Test Item Value Reference Range Interpretation Comments albumin/globulin ratio, serum (test code = 1759-0) 1.6 1.2 -2.2 [facility] Healthglobulin, [id number] 10:51:00* Test Item Value Reference Range Interpretation Comments globulin, serum (test code = 2336-6) 2.7 1.5-4.5 [facility] Healthalbumin, [id number] 10:51:00* Test Item Value Reference Range Interpretation Comments albumin, serum (test code = 1751-7) 4.4 g/dL 3.5-5.5 [facility] Healthprotein, total, [id number] 10:51:00* Test Item Value Reference Range Interpretation Comments protein, total, serum (test code = 2885-2) 7.1 g/dL 6.0-8.5 [facility] Healthcalcium, [id number] 10:51:00* Test Item Value Reference Range Interpretation Comments calcium, serum (test code = 2000-8) 9.6 mg/dL 8.7-10.2 [facility] dioxide, venous [id number] 10:51:00* Test Item Value Reference Range Interpretation Comments carbon dioxide, venous blood (test code = 2027-1) 22 mmol/L 18-2 9 [facility] Healthchloride, [id number] 10:51:00* Test Item Value Reference Range Interpretation Comments chloride, serum (test code = 2075-0) 96 mmol/L 96-106 [facility] Healthpotassium, [id number] 10:51:00* Test Item Value Reference Range Interpretation Comments potassium, serum (test code = 2823-3) 4.4 mmol/L 3.5-5.2 [facility] Healthsodium, [id number] 10:51:00* Test Item Value Reference Range Interpretation Comments sodium, serum (test code = 2951-2) 136 mmol/L 134-144 [facility] Healthurea nitrogen/creatinine ratio, [id number] 10:51:00 * Test Item Value Reference Range Interpretation Comments urea nitrogen/creatinine ratio, serum (test code = 3097-3) 13 9-20 [facility] HealtheGFR if [id number] 10:51:00* Test Item Value Reference Range Interpretation Comments eGFR if (test code = 86390-3) 122 mL/min/((173/100 ).m2) >59 [facility]villeEstimated Glomerular Filtration Rate (calc)2017-08-16 10:51:00* Test Item Value Reference Range Interpretation Comments Estimated Glomerular Filtration Rate (calc) (test code = 18894-9) 105 mL/min/((173/100).m2) >59 [facility]villecreatinine, [id number] 10:51:00* Test Item Value Reference Range Interpretation Comments creatinine, serum (test code = 2160-0) 0.86 mg/dL 0.76-1.27 [facility] nitrogen, [id number] 10:51:00* Test Item Value Reference Range Interpretation Comments urea nitrogen, blood (test code = 3094-0) 11 mg/dL 6-24 [facility] glucose, [id number] 10:51:00* Test Item Value Reference Range Interpretation Comments blood glucose, random (test code = 2339-0) 103 mg/dL 65-99 H [facility]villeimmature granulocytes, percentage of total cells, blood 2017-08-16 10:51:00* Test Item Value Reference Range Interpretation Comments immature granulocytes, percentage of total cells, bloo d (test code = 58803-7) 0 % [facility]ophil count, [id number] 10:51:00* Test Item Value Reference Range Interpretation Comments basophil count, absolute (test code = 73764-1) 0.0 x10E3/uL 0.0-0.2 [facility]villeEosinophil Absolute [id number] 10:51:00* Test Item Value Reference Range Interpretation Comments Eosinophil Absolute Count (test code = 71401-3) 0.2 X10E3/UL 0.0-0. 4 [facility]villemonocyte count, blood, [id number] 10:51:00* Test Item Value Reference Range Interpretation Comments monocyte count, blood, automated (test code = 742-7) 0.4 X10E3/UL 0 .1-0.9 [facility]villelymphocyte count, blood, [id number] 10:51:00* Test Item Value Reference Range Interpretation Comments lymphocyte count, blood, automated (test code = 731-0) 1.8 X10E3/UL 0.7-3.1 [facility]villeAbsolute [id number] 10:51:00* Test Item Value Reference Range Interpretation Comments Absolute Neutrophils (test code = 62355-4) 2.9 X10E3/UL 1.4-7.0 [facility]ophils as percent of blood [id number] 10:51:00* Test Item Value Reference Range Interpretation Comments basophils as percent of blood leukocytes (test code = 707-0) 1 % [facility]villeeosinophils as percent of blood wkkibxnshq4416-56-80 10:51:00* Test Item Value Reference Range Interpretation Comments eosinophils as percent of blood leukocytes (test code = 713-8) 4 % [facility]villemonocytes as percent of blood lumndfmvzq3143-61-26 10:51:00* Test Item Value Reference Range Interpretation Comments monocytes as percent of blood leukocytes (test code = 5905-5) 8 % [facility]villelymphocytes as percent of blood [id number] 10:51:00* Test Item Value Reference Range Interpretation Comments lymphocytes as percent of blood leukocytes (test code = 736-9) 33 % [facility]eneutrophils as percent of blood [id number] 10:51:00* Test Item Value Reference Range Interpretation Comments neutrophils as percent of blood leukocytes (test code = 770-8) 54 % [facility]villeplatelet [id number] 10:51:00* Test Item Value Reference Range Interpretation Comments platelet count (test code = 777-3) 290 X10E3/UL 150-379 [facility]red blood cell distribution [id number] 10:51:00* Test Item Value Reference Range Interpretation Comments red blood cell distribution width (test code = 788-0) 13.2 % 12.3-15.4 [facility]mean corpuscular hemoglobin concentration, [id number] 10:51:00* Test Item Value Reference Range Interpretation Comments mean corpuscular hemoglobin concentration, RBC (test code = 786-4) 34.3 G/DL 31.5-35.7 [facility], [id number] 10:51:00* Test Item Value Reference Range Interpretation Comments mean corpuscular hemoglobin, RBC (test code = 785-6) 30.2 pg 2 6.6-33.0 [facility] corpus[facility] volume, [id number] 10:51:00* Test Item Value Reference Range Interpretation Comments mean corpuscular volume, RBC (test code = 787-2) 88 fL 79-97 [facility]hematocrit, [id number] 10:51:00* Test Item Value Reference Range Interpretation Comments hematocrit, blood (test code = 4544-3) 43.4 % 37.5-51.0 [facility]hemoglobin, [id number] 10:51:00* Test Item Value Reference Range Interpretation Comments hemoglobin, blood (test code = 718-7) 14.9 g/dL 13.0-17.7 [facility]villeerythrocyte (RBC) [id number] 10:51:00* Test Item Value Reference Range Interpretation Comments erythrocyte (RBC) count (test code = 789-8) 4.93 X10E6/UL 4.14-5.80 [facility]villeleukocyte count, [id number] 10:51:00* Test Item Value Reference Range Interpretation Comments leukocyte count, blood (test code = 6690-2) 5.3 X10E3/UL 3.4-10.8 [facility]villethyroid stimulating hormone, [id number] 12:02:00* Test Item Value Reference Range Interpretation Comments thyroid stimulating hormone, serum (test code = 3016-3) 1.61 0 u[iU]/mL 0.450-4.500 [facility]hemoglobin A1C, blood, as % of total [id number] 12:02:00* Test Item Value Reference Range Interpretation Comments hemoglobin A1C, blood, as % of total hemoglobin (test code = 4548-4) 5.7 % 4.8-5.6 H [facility]villeLDL cholesterol, [id number] 12:02:00* Test Item Value Reference Range Interpretation Comments LDL cholesterol, serum (test code = 2089-1) 156 mg/dL 0-99 [facility]very low density mbqyrdttubda9131-37-91 12:02:00* Test Item Value Reference Range Interpretation Comments very low density lipoproteins (test code = 2091-7) 45 mg/dL 5-4 0 H [facility]villeHDL cholesterol, [id number] 12:02:00* Test Item Value Reference Range Interpretation Comments HDL cholesterol, serum (test code = 2085-9) 47 mg/dL >39 [facility]illetriglyceride, serum, [id number] 12:02:00* Test Item Value Reference Range Interpretation Comments triglyceride, serum, fasting (test code = 2571-8) 224 mg/dL 0-14 9 [facility]cholesterol, [id number] 12:02:00* Test Item Value Reference Range Interpretation Comments cholesterol, serum (test code = 2093-3) 248 mg/dL 100-199 [facility]villealanine aminotransferase (SGPT), [id number] 12:02:00 * Test Item Value Reference Range Interpretation Comments alanine aminotransferase (SGPT), serum (test code = 1742-6) 45 1/L 0-44 [facility]villeaspartate aminotransferase (SGOT), linyk0008-02-02 12:02:00* Test Item Value Reference Range Interpretation Comments aspartate aminotransferase (SGOT), serum (test code = 1920-8) 27 1/ L 0-40 [facility]alk[facility] phosphatase, [id number] 12:02:00* Test Item Value Reference Range Interpretation Comments alkaline phosphatase, serum (test code = 1783-0) 76 1/L 39-11 7 [facility]bilirubin, serum, [id number] 12:02:00* Test Item Value Reference Range Interpretation Comments bilirubin, serum, total (test code = 1975-2) 0.4 mg/dL 0.0-1.2 [facility]albumin/globulin ratio, [id number] 12:02:00* Test Item Value Reference Range Interpretation Comments albumin/globulin ratio, serum (test code = 1759-0) 1.8 1.2 -2.2 [facility]villeglobulin, [id number] 12:02:00* Test Item Value Reference Range Interpretation Comments globulin, serum (test code = 2336-6) 2.8 1.5-4.5 [facility] Healthalbumin, [id number] 12:02:00* Test Item Value Reference Range Interpretation Comments albumin, serum (test code = 1751-7) 4.9 g/dL 3.5-5.5 [facility] Healthprotein, total, [id number] 12:02:00* Test Item Value Reference Range Interpretation Comments protein, total, serum (test code = 2885-2) 7.7 g/dL 6.0-8.5 [facility] Healthcalcium, [id number] 12:02:00* Test Item Value Reference Range Interpretation Comments calcium, serum (test code = 2000-8) 9.6 mg/dL 8.7-10.2 [facility] dioxide, venous [id number] 12:02:00* Test Item Value Reference Range Interpretation Comments carbon dioxide, venous blood (test code = 2027-1) 22 mmol/L 18-2 9 [facility]villechloride, [id number] 12:02:00* Test Item Value Reference Range Interpretation Comments chloride, serum (test code = 2075-0) 97 mmol/L 96-106 [facility]potassium, [id number] 12:02:00* Test Item Value Reference Range Interpretation Comments potassium, serum (test code = 2823-3) 4.6 mmol/L 3.5-5.2 [facility]illesodium, [id number] 12:02:00* Test Item Value Reference Range Interpretation Comments sodium, serum (test code = 2951-2) 138 mmol/L 134-144 [facility] nitrogen/creatinine ratio, [id number] 12:02:00 * Test Item Value Reference Range Interpretation Comments urea nitrogen/creatinine ratio, serum (test code = 3097-3) 11 9-20 [facility] HealtheGFR if [id number] 12:02:00* Test Item Value Reference Range Interpretation Comments eGFR if (test code = 32206-6) 125 mL/min/((173/100 ).m2) >59 [facility] HealthEstimated Glomerular Filtration Rate (calc)2016-10-31 12:02:00* Test Item Value Reference Range Interpretation Comments Estimated Glomerular Filtration Rate (calc) (test code = 15727-4) 108 mL/min/((173/100).m2) >59 [facility]villecreatinine, [id number] 12:02:00* Test Item Value Reference Range Interpretation Comments creatinine, serum (test code = 2160-0) 0.81 mg/dL 0.76-1.27 [facility] nitrogen, [id number] 12:02:00* Test Item Value Reference Range Interpretation Comments urea nitrogen, blood (test code = 3094-0) 9 mg/dL 6-24 [facility] glucose, [id number] 12:02:00* Test Item Value Reference Range Interpretation Comments blood glucose, random (test code = 2339-0) 90 mg/dL 65-99 [facility]
--- NOTE | 2020-04-24 13:40 | Diagnostic Imaging Report ---
CT MAX FAC/PARANASAL W HISTORY: Left face swelling COMPARISON: None. TECHNIQUE: Axial CT images through the face were obtained with intravenous contrast. Coronal/sagittal reformations were created. One or more of the following dose reduction techniques were used: Automated exposure control, adjustment of the mA and/or kV according to patient size, and/or utilization of iterative reconstruction technique. DISCUSSION: Subcutaneous edema is seen throughout the left face. Underlying 1.2 cm partially calcified, nodular subcutaneous lesion is seen in the left premaxillary region, abutting the skin. No discrete drainable fluid collection is seen. No dental periapical lucencies are seen. Multiple teeth are missing. The palatine tonsils are mildly prominent with associated tonsilloliths. The imaged upper aerodigestive tract is otherwise unremarkable. No radiographically significant cervical adenopathy is seen. No acute fracture is seen. No destructive osseous lesions are seen. The orbits are intact. Intraorbital contents are grossly unremarkable. The paranasal sinuses are clear. Otherwise, the visualized soft tissues and intracranial compartment are grossly unremarkable. IMPRESSION: 1. Diffuse subcutaneous edema throughout the left face without discrete drainable fluid collection. 2. Underlying nonspecific 1.2 cm partially calcified nodular left premaxillary subcutaneous lesion abutting the skin could be an epidermal inclusion cyst. This can be correlated with physical examination. 3. No dental periapical lucencies. Signed by: Dr. Sohail Cameron M.D. on 04/24/2020 1:36 PM
[2020-04-24] MEDS: PIPER-TAZ 3.375 GM 50 ML IV SCH ×2 (14:00→17:29)
--- NOTE | 2020-04-24 14:30 | NUR ---
Received patient from ER. Patient oriented to room and call light. No s/s of distress, vital signs stable. Call light in reach, bed low, wheels locked, side rails x2. Will continue to monitor patient.
[2020-04-24] MEDS: CLINDAMYCIN 300MG 50 ML IV SCH ×2 (14:55→21:12)
[2020-04-24] MEDS: SODIUM CHLORIDE 0.9% 1000ML 1,000 ML IV SCH ×2 (14:55→23:32)
--- NOTE | 2020-04-24 18:24 | NUR ---
Lactic acid cancelled. Repeat test no longer needed per Dr. Sloan.
--- NOTE | 2020-04-24 18:29 | NUR ---
Patient unable to provide home medication dose. Patient states that he will try to find out medication information.
[2020-04-24] MEDS: ONDANSETRON HCL INJ 2MG/ML 2ML 2 MG/ML VIAL IV PRN (20:05)
[2020-04-24] MEDS: MORPHINE SULFATE 2 MG/ML SYR 1ML IV PRN (20:05)
[2020-04-24] MEDS: VANCOMYCIN 1GM/NS 250 ML 250 ML IV SCH (22:41)
[2020-04-25] VITALS (8 sets, daily range): BP systolic 111–135; BP diastolic 69–87
[2020-04-25] MEDS: PIPER-TAZ 3.375 GM 50 ML IV SCH ×4 (00:23→17:59)
[2020-04-25] MEDS: MORPHINE SULFATE 2 MG/ML SYR 1ML IV PRN ×2 (00:33→05:12)
[2020-04-25] MEDS: ONDANSETRON HCL INJ 2MG/ML 2ML 2 MG/ML VIAL IV PRN ×3 (00:33→20:40)
[2020-04-25] MEDS: CLINDAMYCIN 300MG 50 ML IV SCH ×3 (05:13→23:11)
[2020-04-25 06:28] LABS: BASOPHILS % 0.5 % (0.0-1.0); EOSINOPHILS # (AUTO) 0.2 (0.0-0.4); EOSINOPHILS % 2.8 % (0.0-6.0); HEMATOCRIT 40.9 % (38.2-49.6); HEMOGLOBIN 13.5 g/dL (14.0-18.0); LYMPHOCYTES # (AUTO) 1.3 (1.0-3.2); LYMPHOCYTES % 21.9 % (18.0-39.1); MEAN CORPUSCULAR HEMOGLOBIN 30.7 pg (28-32); MONOCYTES # (AUTO) 0.6 (0.2-0.8); MONOCYTES % 10.3 % (4.4-11.3); NEUTROPHILS # (AUTO) 3.7 (2.1-6.9); NEUTROPHILS % 64.1 % (38.7-80.0); PLATELET COUNT 227 x10e3/uL (140-360); RED CELL DISTRIBUTION WIDTH 12.7 % (11.7-14.4)
[2020-04-25 06:40] LABS: BLOOD UREA NITROGEN 7 mg/dL (7-26); BUN/CREATININE RATIO 7 (6-25); CARBON DIOXIDE 30 mmol/L (22-29); CHLORIDE 105 mmol/L (98-107); CREATININE, SERUM 1.04 mg/dL (0.72-1.25); EST GLOMERULAR FILTRATION RATE > 60 ML/MIN (60-); GLUCOSE 118 mg/dL (74-118); SODIUM 140 mmol/L (136-145)
--- NOTE | 2020-04-25 06:49 | NUR ---
IM- progress note O/N see below ROS; no f/c/s/n/V/D/[facility]/cp/sob/confusion/dizziness/vision changes/leg pain v/s; revd PE tired appearing anicteric; LEFT FACIAL AT [place] WITH ERYTHEMA/INDURATION/TENDERNESS/WARMTH; no skin breakdown/discharge ns1s2 mod bs soft nt nd no e/t skin dry n. affect labs/meds revd A/P: Cellulitis of face- IV abx; cultures Furuncle of face- Possible abscess; IV abx; f/u imaging; Obesity- screen for DM; check lipids BMI 31.5- as above Prop; scd DIpso: f/u labs; 04-25 cont care; CT revd. DELMY MAZARIEGOS MD, PHD.
--- NOTE | 2020-04-25 07:15 | NUR ---
Bedside report and walking rounds completed with on coming nurse. Patient in bed with call light within reach. Bed in locked and lowest position. No issues or concerns noted. Patient updated on POC.
[2020-04-25] MEDS: VANCOMYCIN 1GM/NS 250 ML 250 ML IV SCH ×2 (09:59→21:55)
--- NOTE | 2020-04-25 10:17 | NUR ---
Pt. expressed no spiritual or emotional concerns at this time. Platform Loader provided hospitality and information on how to reach leather production worker, if needed. No need to follow at this time. ROBSON SRINIVASAN Platform Loader Spiritual Care Department O: [phone]
[2020-04-25] MEDS ORDERED: PAXIL40 MG PO (11:17)
[2020-04-25] MEDS ORDERED: LISINOPRIL10 MG PO (11:17)
[2020-04-25] MEDS ORDERED: CLONAZEPAM1 MG PO (11:17)
[2020-04-25] MEDS ORDERED: ATORVASTATIN CA20 MG PO (11:17)
[2020-04-25] MEDS: CLONAZEPAM 1 MG TAB PO PRN (12:35)
--- NOTE | 2020-04-25 15:21 | NUR ---
patient resting up in bed. Alert with no distress, on IV fluids and IV antibiotics
--- NOTE | 2020-04-25 19:15 | NUR ---
Resumed care of patient. Patient awake and resting in bed, no s/s of distress at this time. Bed locked and in lowest position, side rails upx2, call light placed within reach. Patient instructed to call for assistance if needed, verbalized understanding. All safety measures in place.
[2020-04-25] MEDS: SODIUM CHLORIDE 0.9% 1000ML 1,000 ML IV SCH (20:19)
[2020-04-25] MEDS: MORPHINE SULFATE INJ 4 MG/ML INJ 1ML IV PRN (20:39)
[2020-04-25] MEDS: ATORVASTATIN 20 MG TAB PO SCH (20:39)
[2020-04-26] VITALS (7 sets, daily range): BP systolic 103–140; BP diastolic 73–97
[2020-04-26] MEDS: PIPER-TAZ 3.375 GM 50 ML IV SCH ×2 (00:52→06:08)
[2020-04-26] MEDS: MORPHINE SULFATE INJ 4 MG/ML INJ 1ML IV PRN ×3 (00:52→20:41)
[2020-04-26] MEDS: ONDANSETRON HCL INJ 2MG/ML 2ML 2 MG/ML VIAL IV PRN ×2 (00:52→05:17)
[2020-04-26] MEDS: CLINDAMYCIN 300MG 50 ML IV SCH ×3 (05:11→22:26)
--- NOTE | 2020-04-26 06:34 | NUR ---
IM- progress note O/N see below ROS; no f/c/s/n/V/D/[facility]/cp/sob/confusion/dizziness/vision changes/leg pain v/s; revd PE tired appearing anicteric; LEFT FACIAL AT [place] WITH ERYTHEMA/INDURATION/TENDERNESS/WARMTH; no skin breakdown/discharge ns1s2 mod bs soft nt nd no e/t skin dry n. affect labs/meds revd A/P: Cellulitis of face- IV abx; cultures Furuncle of face- Possible abscess; IV abx; f/u imaging; Obesity- screen for DM; check lipids BMI 31.5- as above Prop; scd DIpso: f/u labs; 04-25 cont care; CT revd. - cont care. DELMY MAZARIEGOS MD, PHD.
--- NOTE | 2020-04-26 06:56 | NUR ---
Bedside report given to oncoming nurse. Patient awake and resting in bed, no s/s of distress at this time. All safety measures in place.
--- NOTE | 2020-04-26 08:03 | NUR ---
Notified Consult to Dr Valles's office, spoke with Mrs Miller
[2020-04-26] MEDS: PAROXETINE HCL 20 MG TAB PO SCH (08:56)
[2020-04-26] MEDS: CEFEPIME 1GM/NS 0.9% 50 ML 50 ML IV SCH (08:56)
[2020-04-26] MEDS: LISINOPRIL 10 MG TAB PO SCH (08:56)
--- NOTE | 2020-04-26 10:50 | NUR ---
ASSESSMENT: Spiritual distress Referred by [employer] employee. Pt overwhelmed by complicated marital issues. Pt states his of 13 years left him since his hospitalization. Pt expressed emotions thru words and tears. Pt states she moved out of their apartment and broke their contract. He also states he cannot afford to stay there on his disability income. Pt expressed that their primary disagreement concerns their different evangelical beliefs. Pt states he has history of depression. Pt trying to decide whether to move to [place] with his son or [place] with his brother/family. Pt states his patricio is important to him. Intervention: Provided unhurried empathic listening and prayer. Followed up w/ RN. Will consult SW/CM for resources. Outcome: Pt expressed appreciation for support. Will follow as able. ROBSON SRINIVASAN Ct Scan Technician Spiritual Care Department O: [phone]
[2020-04-26] MEDS: SODIUM CHLORIDE 0.9% 1000ML 1,000 ML IV SCH (13:10)
[2020-04-26] MEDS: VANCOMYCIN 1GM/NS 250 ML 250 ML IV SCH ×2 (13:43→21:00)
--- NOTE | 2020-04-26 18:17 | Consultation ---
DATE OF CONSULTATION: 04/26/2020 HISTORY OF PRESENT ILLNESS: The patient is a 49-year-old male, history of hypertension, hyperlipidemia, presents with complaints of pain and swelling on the left side of his face, which he had for about 6 days now. He has been admitted to the hospital, started on antibiotics, but swelling has persisted. CT of the face was done, which revealed no definite abscess, just inflammation, but now seems to be coalescing into an abscess. He has not had any fever. PAST MEDICAL HISTORY: Significant hypertension, anxiety, and hyperlipidemia. He has had previous cholecystectomy. MEDICATIONS: At home were Lipitor, clonazepam, lisinopril, and paroxetine. ALLERGIES: HE HAS NO KNOWN ALLERGIES. FAMILY HISTORY: Noncontributory. SOCIAL HISTORY: The patient is . He does not smoke cigarettes or drink alcohol. REVIEW OF SYSTEMS: As stated above, otherwise was negative. PHYSICAL EXAMINATION: GENERAL: The patient is awake and alert. VITAL SIGNS: Normal. HEENT: There is erythema and swelling below the left eye with question of fluctuance. There is no necrotic tissue. NECK: Has no masses. LUNGS: Equal breath sounds are clear bilaterally. CARDIAC: Regular rate and rhythm with no murmur. ABDOMEN: Soft without tenderness or mass. EXTREMITIES: Have no edema. NEUROLOGIC: Intact. ASSESSMENT: A 49-year-old male with cellulitis of the left side of his face, is now developing into an abscess. PLAN: Incision and drainage to be done in the operating room tomorrow. Procedure was explained to the patient. Thank you for asking me to see Mr. Agustin Rausch. MD FRANK Kennedy/JABIERL /[id number]
[2020-04-26] MEDS: ATORVASTATIN 20 MG TAB PO SCH (22:25)
[2020-04-27] VITALS (8 sets, daily range): BP systolic 116–138; BP diastolic 74–85
[2020-04-27] MEDS: ZOLPIDEM TARTRATE 5 MG TAB PO PRN ×2 (00:15→21:27)
[2020-04-27] MEDS: SODIUM CHLORIDE 0.9% 1000ML 1,000 ML IV SCH ×3 (01:30→21:42)
[2020-04-27] MEDS: CLINDAMYCIN 300MG 50 ML IV SCH ×3 (05:08→22:52)
[2020-04-27] MEDS: CEFEPIME 1GM/NS 0.9% 50 ML 50 ML IV SCH (06:29)
--- NOTE | 2020-04-27 07:00 | NUR ---
BEDSIDE SHIFT REPORT RECEIVED FROM THE REACH TRUCK OPERATOR RN. EDUCATED PT ABOUT FALL PRECAUTIONS. PT VERBALIZED UNDERSTANDING. CALL LIGHT WITH IN EASY REACH. BED IS LOW AND LOCKED. SIDE RAILS X2. ALL SAFETY MEASURES IN PLACE. PT IS ON NPO. PT DENIES NEEDS AT THIS TIME.
--- NOTE | 2020-04-27 07:30 | NUR ---
PAGED DR. EGAN OFFICE REGARDING CONSENT ORDER.
[2020-04-27] MEDS: PAROXETINE HCL 20 MG TAB PO SCH (08:00)
[2020-04-27] MEDS: LISINOPRIL 10 MG TAB PO SCH (08:00)
--- NOTE | 2020-04-27 08:40 | NUR ---
Pt sleeping soundly and no family present. ROBSON SRINIVASAN Grader Tender Spiritual Care Department O: [phone]
[2020-04-27] MEDS: VANCOMYCIN 1GM/NS 250 ML 250 ML IV SCH ×2 (09:16→21:00)
--- NOTE | 2020-04-27 09:39 | NUR ---
IM- progress note O/N see below ROS; no f/c/s/n/V/D/[facility]/cp/sob/confusion/dizziness/vision changes/leg pain v/s; revd PE tired appearing anicteric; LEFT FACIAL AT [place] WITH ERYTHEMA/INDURATION/TENDERNESS/WARMTH; no skin breakdown/discharge ns1s2 mod bs soft nt nd no e/t skin dry n. affect labs/meds revd A/P: Cellulitis of face- IV abx; cultures Furuncle of face- Possible abscess; IV abx; f/u imaging; Obesity- screen for DM; check lipids BMI 31.5- as above Prop; scd DIpso: f/u labs; 04-25 cont care; CT revd. - cont care. 12-2 cont IV abx; I&D pending; DELMY MAZARIEGOS MD, PHD.
--- NOTE | 2020-04-27 10:11 | NUR ---
CALL RECEIVED FROM [facility] REGARDING WOUND CULTURE. PAGED DR. MAZARIEGOS AND REPORTED THE SAME. WOUND CULTURE AT I&D TODAY PER THE DR. INFORMED THE SAME TO LAB.
[2020-04-27] MEDS ORDERED: PROPOFOL IV EMULSION 10 MG/ML 20 ML VIAL ONE (12:10)
[2020-04-27] MEDS ORDERED: NEOSTIGMINE 1 MG/ML 10ML VIAL ONE (12:10)
[2020-04-27] MEDS ORDERED: DESFLURANE 240 ML BTL INH ONE (12:10)
[2020-04-27] MEDS ORDERED: ROCURONIUM BROMIDE 10 MG/ML 5ML VIAL IV ONE (12:10)
[2020-04-27] MEDS ORDERED: GLYCOPYRROLATE INJ 0.2 MG/ML VIAL ONE (12:10)
[2020-04-27] MEDS ORDERED: LIDOCAINE HCL 2% LOCAL INJ 5 ML SDV VIAL INJ ONE (12:10)
[2020-04-27] MEDS ORDERED: FENTANYL CITRATE/PF 100MCG/2 ML INJ ONE (12:23)
[2020-04-27] MEDS ORDERED: MIDAZOLAM HCL 2 MG/2 ML VIAL ONE (12:23)
--- NOTE | 2020-04-27 13:26 | NUR ---
PT OFF UNIT FOR PROCEDURE IN SAFE CONDITION.
--- NOTE | 2020-04-27 13:36 | NUR ---
Pt en-route for procedure. Will follow up as able. ROBSON SRINIVASAN Surveillance System Monitor Spiritual Care Department O: [phone]
--- NOTE | 2020-04-27 15:45 | NUR ---
PT IS BACK TO THE UNIT AFTER PROCEDURE. S/P I&D LEFT SIDE FACE DRESSING CDI. PT DENIES NEEDS AT THIS TIME.
[2020-04-27] MEDS: CLONAZEPAM 1 MG TAB PO PRN (18:22)
[2020-04-27] MEDS: HYDROCODONE/APAP 5MG-325MG TAB PO PRN ×2 (18:22→22:15)
--- NOTE | 2020-04-27 19:07 | NUR ---
BEDSIDE SHIFT REPORT GIVEN TO THE TRAVEL TRAILER COMPONENTS ASSEMBLER RN. PT DENIED FURTHER NEEDS.
--- NOTE | 2020-04-27 19:34 | Operative Report ---
DATE OF PROCEDURE: 04/27/2020 SURGEON: Wilbur Valles MD PREOPERATIVE DIAGNOSIS: Abscess, left zygomatic area. POSTOPERATIVE DIAGNOSIS: Abscess, left zygomatic area. PROCEDURE: Incision and drainage of abscess, left zygomatic area. SUPERVISOR STATEMENT CLERKS: None. ANESTHESIA: General. INDICATIONS AND FINDINGS: The patient is a 49-year-old male admitted to the hospital with complaints of pain and swelling on the left side of his face, which is convalescent formed area of an abscess. At Surgery, there was an abscess within the subcutaneous tissue at the zygomatic area, which contributed about 2 mL of purulent fluid that was drained. There was no necrotic tissue. TECHNIQUE: After adequate general endotracheal anesthesia, the patient in supine position, the left side of the face and the zygomatic area was prepped and draped in sterile fashion with Betadine solution. Transverse incision was made over the area of swelling and fluctuance, and abscess cavity was entered. Purulent fluid was drained. About 2 mL of purulent fluid was drained. Sample was taken for culture and sensitivity. The abscess cavity was irrigated with saline. Hemostasis achieved with electrocautery. It was then packed open with quarter-inch iodoform gauze and sterile dressing applied. The patient tolerated the procedure well. Estimated blood loss was 10 mL. There were no complications. All counts were correct. The patient was taken to the recovery room in satisfactory condition. Wilbur Valles MD DWG/MODL /[id number] cc: Андрей Sloan MD
--- NOTE | 2020-04-27 19:42 | NUR ---
RECEIVED PT IN BED AOX3 ,PT HAD I& D DONE RT SIDE OF THE FACE WITH DRESSING .LEFT AC 20G NS AT 100CC/HR ,CALL LIGHT WITH IN REACH ,CONTINUE TO MONITOR
[2020-04-27] MEDS: ATORVASTATIN 20 MG TAB PO SCH (21:42)
[2020-04-28] VITALS (8 sets, daily range): BP systolic 108–154; BP diastolic 69–87
--- NOTE | 2020-04-28 05:47 | NUR ---
C/O PAIN GIVEN NORCO ,PT RESTING CALL LIGHT WITH IN REACH ,CONTINUE TO MONITOR
[2020-04-28] MEDS: CLINDAMYCIN 300MG 50 ML IV SCH ×3 (05:54→22:00)
[2020-04-28] MEDS: CEFEPIME 1GM/NS 0.9% 50 ML 50 ML IV SCH ×2 (06:23→17:05)
--- NOTE | 2020-04-28 07:00 | NUR ---
BEDSIDE SHIFT REPORT RECEIVED FROM THE INFANTRY SENIOR SERGEANT RN. EDUCATED PT ABOUT FALL PRECAUTIONS. PT VERBALIZED UNDERSTANDING. CALL LIGHT WITH IN EASY REACH. BED IS LOW AND LOCKED. SIDE RAILS X2. ALL SAFETY MEASURES IN PLACE. PT DENIES NEEDS AT THIS TIME.
--- NOTE | 2020-04-28 07:11 | NUR ---
BEDSIDE REPORT GIVEN TO THE ONCOMING NURSE
--- NOTE | 2020-04-28 07:44 | NUR ---
IM- progress note O/N see below ROS; no f/c/s/n/V/D/[place]/cp/sob/confusion/dizziness/vision changes/leg pain v/s; revd PE tired appearing anicteric; LEFT FACIAL AT [place] REG[place] WITH ERYTHEMA/INDURATION/TENDERNESS/WARMTH; no skin breakdown/discharge [id number] mod bs soft nt nd no e/t skin dry n. affect labs/meds revd A/P: Cellulitis of face- IV abx; cultures Furuncle of face- Possible abscess; IV abx; f/u imaging; Obesity- screen for DM; check lipids BMI 31.5- as above Prop; scd DIpso: f/u labs; 04-25 cont care; CT revd. - cont care. - cont IV abx; I&D pending; 12-3 s/p I&D; check labs; cont IV abx DELMY MAZARIEGOS MD, PHD.
[2020-04-28] MEDS: HYDROCODONE/APAP 5MG-325MG TAB PO PRN ×2 (08:07→22:15)
[2020-04-28] MEDS: CLONAZEPAM 1 MG TAB PO PRN ×2 (08:08→21:30)
[2020-04-28 08:51] LABS: BASOPHILS # (AUTO) 0.1 (0.0-0.1); BASOPHILS % 0.6 % (0.0-1.0); EOSINOPHILS # (AUTO) 0.1 (0.0-0.4); EOSINOPHILS % 1.6 % (0.0-6.0); HEMATOCRIT 39.6 % (38.2-49.6); HEMOGLOBIN 12.7 g/dL (14.0-18.0); LYMPHOCYTES # (AUTO) 1.7 (1.0-3.2); LYMPHOCYTES % 20.8 % (18.0-39.1); MEAN CORPUSCULAR HEMOGLOBIN 29.5 pg (28-32); MEAN CORPUSCULAR HGB CONC 32.1 g/dL (31-35); MEAN CORPUSCULAR VOLUME 91.9 fL (81-99); MONOCYTES # (AUTO) 0.4 (0.2-0.8); MONOCYTES % 5.2 % (4.4-11.3); NEUTROPHILS % 71.6 % (38.7-80.0); PLATELET COUNT 276 x10e3/uL (140-360); RED BLOOD COUNT 4.31 x10e6/uL (4.3-5.7); RED CELL DISTRIBUTION WIDTH 12.7 % (11.7-14.4)
[2020-04-28] MEDS: PAROXETINE HCL 20 MG TAB PO SCH (09:12)
[2020-04-28] MEDS: VANCOMYCIN 1GM/NS 250 ML 250 ML IV SCH (09:12)
[2020-04-28 09:26] LABS: ANION GAP 14.7 mmol/L (8-16); CALCIUM 9.6 mg/dL (8.4-10.2); CARBON DIOXIDE 24 mmol/L (22-29); CHLORIDE 107 mmol/L (98-107); CREATININE, SERUM 0.98 mg/dL (0.72-1.25); EST GLOMERULAR FILTRATION RATE > 60 ML/MIN (60-); GLUCOSE 169 mg/dL (74-118); POTASSIUM 4.7 mmol/L (3.5-5.1); SODIUM 141 mmol/L (136-145)
[2020-04-28] MEDS: LISINOPRIL 10 MG TAB PO SCH (09:44)
[2020-04-28 09:50] LABS: BLOOD UREA NITROGEN 9 mg/dL (7-26); BUN/CREATININE RATIO 10 (6-25)
[2020-04-28] MEDS: SODIUM CHLORIDE 0.9% 1000ML 1,000 ML IV SCH ×2 (11:02→17:05)
--- NOTE | 2020-04-28 12:00 | NUR ---
PT VOICED CONCERN ON PLACEMENT AFTER D/C. PAGED DR. MAZARIEGOS AND REPORTED THE SAME. PAGED PET WALKER REGARDING PT CONCERN.
--- NOTE | 2020-04-28 13:00 | NUR ---
Pt considering living options following discharge. Client Executive facilitated conversation about decision making and provided prayer. Pt expressed appreciation for continued support. [facility] O: [phone]
--- NOTE | 2020-04-28 13:23 | NUR ---
SPOKE WITH PT WITH JULIO IN ROOM, EDUCATED HIM ABOUT CRITERIA FOR PLACEMENT. HE STATES HIS LEFT THE APARTMENT AFTER HE CAME HERE AND THAT IS WHY HE WANTS TO BE PLACED. HE STATES HE HAS HIS SOCIAL SECURITY AND HIS SON LIVES IN [place], I ASKED HIM WHAT HE WOULD BE DOING IF HE WASNT HERE. HE STATES HE STILL HAS HIS [place] AND DOESNT THINK THEY WILL EVICT HIM WITH THE PANDEMIC. HE WILL GO HOME OR GET A HOTEL. HE IS ABLE TO CARE FOR SELF AND IS INDEPENDENT IN HIS ADL'S
[2020-04-28] MEDS: MORPHINE SULFATE INJ 4 MG/ML INJ 1ML IV PRN (16:34)
--- NOTE | 2020-04-28 19:18 | NUR ---
BEDSIDE SHIFT REPORT GIVEN TO THE FARM MARKETER RN. PT DENIED FURTHER NEEDS.
--- NOTE | 2020-04-28 19:50 | NUR ---
RECEIVED PT IN CHAIR AOX3 . RT SIDE OF THE FACE WITH DRESSING .LEFT AC 20G NS AT 100CC/HR , C/O PAIN CALL LIGHT WITH IN REACH ,CONTINUE TO MONITOR
[2020-04-28] MEDS: VANCOMYCIN 300 ML IV SCH (21:29)
[2020-04-28] MEDS: ATORVASTATIN 20 MG TAB PO SCH (21:29)
[2020-04-28] MEDS: DOCUSATE SODIUM 100 MG CAP PO PRN ×2 (22:30→22:32)
[2020-04-28] MEDS: ZOLPIDEM TARTRATE 5 MG TAB PO PRN (22:32)
[2020-04-29 00:24] VITALS: BP 133/84
[2020-04-29 04:00] VITALS: BP 134/54
[2020-04-29] MEDS: SODIUM CHLORIDE 0.9% 1000ML 1,000 ML IV SCH (05:08)
[2020-04-29] MEDS: HYDROCODONE/APAP 5MG-325MG TAB PO PRN (05:18)
[2020-04-29] MEDS: CLINDAMYCIN 300MG 50 ML IV SCH ×3 (06:20→13:36)
[2020-04-29] MEDS: CEFEPIME 1GM/NS 0.9% 50 ML 50 ML IV SCH (06:21)
--- NOTE | 2020-04-29 06:36 | NUR ---
PT C/O PAIN AND GIVEN NORCO ,PT RESTING , ,CALL LIGHT WITH IN REACH CONTINUE TO MONITOR
[2020-04-29] MEDS ORDERED: CLINDAMYCIN HC150 MG PO (06:45)
[2020-04-29] MEDS ORDERED: CEFUROXIME250 MG PO (06:45)
[2020-04-29] MEDS ORDERED: ULTRAM 50MG50 MG PO (06:48)
[2020-04-29] MEDS ORDERED: TYLENOL # 31 EA PO (06:48)
[2020-04-29] MEDS ORDERED: ONDANSETRON HCL 4 MG ORAL DISINTEGRATING TAB PO PRN (07:00)
[2020-04-29] MEDS ORDERED: ACETAMINOPHEN/CODEINE 300MG - 30MG TAB PO PRN (07:00)
[2020-04-29] MEDS ORDERED: TRAMADOL HCL 50 MG TAB PO PRN (07:00)
--- NOTE | 2020-04-29 07:00 | NUR ---
BEDSIDE SHIFT REPORT RECEIVED FROM THE GROUND SUPPORT EQUIPMENT FITTER RN. PT AAOX4. EDUCATED PT ABOUT FALL PRECAUTIONS. CALL LIGHT WITH IN EASY REACH. INSTRUCTED PT TO USE CALL LIGHT FOR ALL THE NEEDS. PT VERBALIZED UNDERSTANDING. BED IS LOW AND LOCKED. SIDE RAILS X2. PT DENIES NEEDS AT THIS TIME.
--- NOTE | 2020-04-29 07:29 | NUR ---
BEDSIDE REPORT GIVEN TO THE ONCOMING NURSE.
[2020-04-29 07:48] VITALS: BP 134/91
[2020-04-29 08:20] VITALS: BP 134/91
[2020-04-29] MEDS: PAROXETINE HCL 20 MG TAB PO SCH (09:46)
[2020-04-29] MEDS: LISINOPRIL 10 MG TAB PO SCH (09:47)
[2020-04-29] MEDS: VANCOMYCIN 300 ML IV SCH (09:56)
[2020-04-29] MEDS: CLONAZEPAM 1 MG TAB PO PRN (09:56)
[2020-04-29 11:40] VITALS: BP 138/82
[2020-04-29] MEDS ORDERED: CLINDAMYCIN HCL 150 MG CAP PO SCH (14:00)
== END 2020-04-29 14:00 | disposition home or self-care (01) | DRG 581 ==
LOC: ER 11:25 → ERHOLD 13:27 → MED/SURG3 14:30
PROVIDERS: ADMIT Internal Medicine; ATTEND Internal Medicine
PROC: 0J910ZZ Drainage of Face Subcutaneous Tissue and Fascia, Open Approach (ICD-10-PCS; principal; 2020-04-27 09:30)
DX: L03.211 Cellulitis of face (principal); I10 Essential (primary) hypertension; F41.9 Anxiety disorder, unspecified; E78.5 Hyperlipidemia, unspecified; Z20.828 Contact with and (suspected) exposure to other viral communicable diseases; E78.00 Pure hypercholesterolemia, unspecified
CPT/HCPCS: 36415; 70487; 80048; 80053; 80202; 83605; 85025; 85610; 85730; 87040; 87071; 87075; 87205; 99284; J0692; J2001; J2060; J2250; J2270; J2405; J2543; J2710; J3010; J3370; J7030; Q9967; U0002